=== PATIENT | male | born 1945 | race Caucasian/White ===

== ENCOUNTER 2016-09-02 16:11 | Emergency (ER) | payer MEDICARE, OTHER ==
[2016-09-02] MEDS ORDERED: HYDROcod/ACETAM 5/325 MG TABLET PO STA (16:32)
[2016-09-02] MEDS ORDERED: HYDROcod/ACETAM 5/325 MG TABLET ONE ×2 (16:34→17:26)
[2016-09-02] MEDS ORDERED: HYDROcod/ACET 5/325 Prepack 6 PO STA (17:24)
[2016-09-02] MEDS ORDERED: HYDROcod/ACET 5/325 Prepack 6 PO ONE (17:29)
== END 2016-09-02 18:00 | disposition home or self-care (01) ==
DX: R51 Headache (principal); I10 Essential (primary) hypertension; I45.10 Unspecified right bundle-branch block; E11.9 Type 2 diabetes mellitus without complications; Z79.84 Long term (current) use of oral hypoglycemic drugs; Z79.82 Long term (current) use of aspirin
CPT/HCPCS: 36415; 70450; 80053; 83690; 85025; 93005; 93010; 99283; 99284; A9270

== ENCOUNTER 2016-12-26 11:11 | Inpatient (IN) | payer MEDICARE, OTHER ==
[2016-12-26] MEDS ORDERED: SODIUM CHLORIDE 0.9% 1,000 ML IV ONE ×2 (11:22→13:12)
--- NOTE | 2016-12-26 11:36 | ED Physician Documentation ---
History of Present Illness - Stated complaint Stated Complaint: DEHYDRATION - Chief complaint Chief Complaint: General - Additonal information Additional information: hx from pt sick for about a week had gum pain, couldn't eat, nauseated no vomit but had diarrhea and a cough saw PMD rx zmax not better very weak upper abd pain BP was low and HR was high so sent to ER Review of Systems Constitutional: reports: Myalgias, Fatigue. denies: Fever, Chills Throat: reports: Dental pain / toothache Cardiac: denies: Chest pain / pressure Respiratory: reports: Dyspnea, Cough GI: reports: Abdominal Pain (upper), Nausea, Diarrhea. denies: Vomiting, Bloody / black stool (none seen) : denies: Dysuria Neurologic: reports: Generalized weakness Endocrine: denies: Easy bruising / bleeding Immunocompromised: denies: HIV/AIDS PD PAST MEDICAL HISTORY - Past Medical History Past Medical History: Yes Cardiovascular: Hypertension, High cholesterol Respiratory: Asthma Neuro: Headache/migraine Endocrine/Autoimmune: Type 2 diabetes Psych: Depression, Anxiety - Past Surgical History Past Surgical History: Yes - Present Medications Home Medications: Ambulatory Orders Medication Instructions Recorded Confirmed Cetirizine [ZyrTEC] 10 mg PO DAILY 07/14/14 12/26/16 Gabapentin [Neurontin] 600 mg PO DAILY 07/14/14 12/26/16 Glipizide [Glipizide Xl] 10 mg PO DAILY 07/14/14 12/26/16 Ipratropium/Albuterol [Duoneb] 3 ml INH QID 07/14/14 12/26/16 Losartan [Cozaar] 50 mg PO DAILY 07/14/14 12/26/16 Sertraline HCl [Zoloft] 150 mg PO DAILY 07/14/14 12/26/16 Simvastatin [Zocor] 40 mg PO DAILY 07/14/14 12/26/16 Sitagliptin Phos/Metformin HCl 1 tab PO BIDWM 07/14/14 12/26/16 [Janumet 50-1,000 mg Tablet] Tamsulosin [Flomax] 0.4 mg PO DAILY 07/14/14 12/26/16 Albuterol Sulfate [Proair Hfa 2 puffs INH Q4H PRN 12/26/16 12/26/16 Inhaler] Aspirin [Aspirin EC] 81 mg PO DAILY 12/26/16 12/26/16 Bupropion HCl [Bupropion Xl] 150 mg PO DAILY 12/26/16 12/26/16 Fluticasone/Salmeterol [Advair 1 puffs INH BID 12/26/16 12/26/16 250-50 Diskus] - Allergies Allergies/Adverse Reactions: Allergies Allergy/AdvReac Type Severity Reaction Status Date / Time Penicillins Allergy Unknown Verified 09/02/16 16:18 - Social History Does the pt smoke?: No Smoking Status: Never smoker Does the pt drink ETOH?: No Does the pt have substance abuse?: No - Immunizations Immunizations are current?: Yes - POLST Patient has POLST: No PD ED PE NORMAL - Vitals Vital signs reviewed: Yes - General General: Alert and oriented X 3 - HEENT HEENT: Other (dry, white debris on tongue, tender erythematous gums with white exudate, ni cheek lesions) - Neck Neck: Supple, no meningeal sign - Cardiac Cardiac: RRR - Respiratory Respiratory: No respiratory distress, Clear bilaterally - Abdomen Abdomen: Other (upper abd TTP no rebound guarding or pulsatile mass) - Derm Derm: Other (pale) - Extremities Extremities: No deformity - Neuro Neuro: Alert and oriented X 3 - Psych Psych: Normal mood Results - Vitals Vitals: Vital Signs - 24 hr 12/26/16 12/26/16 11:19 13:11 Temperature 36.4 C L Heart Rate 109 H 94 Respiratory 19 16 Rate Blood Pressure 118/70 95/59 L O2 Saturation 96 97 Oxygen O2 Source Room air - Labs Labs: Laboratory Tests 12/26/16 12/26/16 12/26/16 11:20 11:20 11:20 WBC 7.7 RBC 5.36 Hgb 16.2 Hct 47.1 MCV 88.0 MCH 30.3 MCHC 34.5 RDW 13.9 Plt Count 91 L MPV 9.1 Neut # 5.1 Lymph # 1.6 [place] # 1.0 Eos # 0.0 Baso # 0.1 Absolute Nucleated RBC 0.00 Nucleated RBCs 0.0 Sodium 134 L Potassium 4.3 Chloride 100 L Carbon Dioxide 23 Anion Gap 11.0 BUN 30 H Creatinine 1.4 H Estimated GFR (MDRD) 50 L Glucose 131 H Glycated Hemoglobin Estim Average Glucose Lactic Acid Calcium 8.9 Total Bilirubin 1.0 AST 24 ALT 25 Alkaline Phosphatase 50 Troponin I < 0.04 Total Protein 7.8 Albumin 4.0 Globulin 3.8 Albumin/Globulin Ratio 1.1 Lipase 44 Urine Color Urine Clarity Urine pH Ur Specific [place] Urine Protein Urine Glucose (UA) Urine Ketones Urine Occult Blood Urine Nitrite Urine Bilirubin Urine Urobilinogen Ur Leukocyte Esterase Urine RBC Urine WBC Ur Squamous Epith Cells Urine Bacteria Urine Casts Urine Mucus Ur Microscopic Review Urine Culture Comments 12/26/16 12/26/16 12/26/16 11:20 11:20 13:24 WBC RBC Hgb Hct MCV MCH MCHC RDW Plt Count MPV Neut # Lymph # [place] # Eos # Baso # Absolute Nucleated RBC Nucleated RBCs Sodium Potassium Chloride Carbon Dioxide Anion Gap BUN Creatinine Estimated GFR (MDRD) Glucose Glycated Hemoglobin 8.2 H Estim Average Glucose 189 H Lactic Acid 1.5 Calcium Total Bilirubin AST ALT Alkaline Phosphatase Troponin I Total Protein Albumin Globulin Albumin/Globulin Ratio Lipase Urine Color YELLOW Urine Clarity CLEAR Urine pH 5.5 Ur Specific [place] >=1.030 H Urine Protein 100 H Urine Glucose (UA) NEGATIVE Urine Ketones 15 H Urine Occult Blood NEGATIVE Urine Nitrite NEGATIVE Urine Bilirubin NEGATIVE Urine Urobilinogen 0.2 (NORMAL) Ur Leukocyte Esterase NEGATIVE Urine RBC 0-5 Urine WBC 0-3 Ur Squamous Epith Cells RARE Squamous Urine Bacteria Rare Urine Casts 0-2 Course Granular Urine Mucus Few Strands Ur Microscopic Review INDICATED Urine Culture Comments NOT INDICATED - Rads (name of study) CXR Radiology: See rad report (L basilar infiltrate) CT AP Radiology: See rad report (choleltihiasis (pt advised) , R renal cyst, prom prostate, other chronic findings) PD MEDICAL DECISION MAKING - ED course ED course: LLL pna hypotension - could be sepsis could be dehydration as pt has not been eating or drinking secondary to extensive gum infection will admit pt already failed zmax and is allergic to penicillins and levaquin is black box now so will try cefuroxime Departure - Departure Disposition: 66 [facility] DC/Xfer Clinical Impression: Dehydration, ANUG (acute necrotizing ulcerative gingivitis), Renal insufficiency Pneumonia Qualifiers: Pneumonia type: due to unspecified organism Laterality: left Lung location: lower lobe of lung Qualified Code(s): J18.1 - Lobar pneumonia, unspecified organism Hypotension Qualifiers: Hypotension type: unspecified hypotension type Qualified Code(s): I95.9 - Hypotension, unspecified Condition: Fair Discharge Date/Time: 12/26/16 15:55
[2016-12-26 11:38] LABS: BASOPHILS # (AUTO) 0.1 10^3/uL (0.0-0.1); BASOPHILS % (AUTO) 0.8 %; EOSINOPHILS % (AUTO) 0.3 %; HCT - HEMATOCRIT 47.1 % (42.0-52.0); HGB - HEMOGLOBIN 16.2 g/dL (14.0-18.0); LYMPHOCYTES # (AUTO) 1.6 10^3/uL (1.5-3.5); LYMPHOCYTES % (AUTO) 20.5 %; MEAN CORPUSCULAR HEMOGLOBIN 30.3 pg (27.0-31.0); MEAN CORPUSCULAR HGB CONC 34.5 g/dL (32.0-36.0); MEAN PLATELET VOLUME 9.1 fL (7.4-11.4); MONOCYTES % (AUTO) 12.5 %; NEUTROPHILS # (AUTO) 5.1 10^3/uL (1.5-6.6); NEUTROPHILS % (AUTO) 65.9 %; RED BLOOD COUNT 5.36 10^6/uL (4.70-6.10); RED CELL DISTRIBUTION WIDTH 13.9 % (12.0-15.0); UNCORRECTED WHITE BLOOD COUNT 7.7 x10^3/uL; WHITE BLOOD COUNT 7.7 x10^3/uL (4.8-10.8)
[2016-12-26 11:48] LABS: ALBUMIN/GLOBULIN RATIO 1.1 (1.0-2.2); CALCIUM 8.9 mg/dL (8.5-10.3); CREATININE 1.4 mg/dL (0.6-1.2); POTASSIUM 4.3 mmol/L (3.5-5.0); TOTAL PROTEIN 7.8 g/dL (6.7-8.2)
[2016-12-26] MEDS ORDERED: ONDANSETRON 4 MG/2 ML VIAL IVP STA (12:30)
[2016-12-26] MEDS ORDERED: ACETAMINOPHEN 1,000 MG/100 ML 100 ML IV STA (12:30)
[2016-12-26] MEDS ORDERED: ONDANSETRON 4 MG/2 ML VIAL ONE (12:33)
[2016-12-26] MEDS ORDERED: ACETAMINOPHEN 1,000 MG/100 ML 100 ML IV ONE (12:33)
--- NOTE | 2016-12-26 13:20 | XRAY Preliminary Report ---
Exam: XR Chest 1 View IMPRESSION: Small left basilar atelectasis versus infiltrate. [facility] SITE ID: [id number]
--- NOTE | 2016-12-26 13:22 | XRAY Report ---
EXAM: CHEST RADIOGRAPHY EXAM DATE: 12/26/2016 12:55 PM. CLINICAL HISTORY: Cough. COMPARISON: 12/24/2016. TECHNIQUE: 1 view. FINDINGS: Lungs/Pleura: Patchy density in the medial left base. No consolidation, effusion, or pneumothorax. Mediastinum: Within exam limitations, cardiomediastinal contour is normal. Other: None. IMPRESSION: Small left basilar atelectasis versus infiltrate. [facility] Referring Provider Line: [phone] SITE ID: [id number]
--- NOTE | 2016-12-26 13:27 | CT Preliminary Report ---
Exam: CT Abdomen/Pelvis W/O IMPRESSION: 1. Cholelithiasis. 2. Right renal cyst. 3. Prominent prostate. 4. Other chronic or incidental findings. [facility] SITE ID: [id number]
--- NOTE | 2016-12-26 13:30 | CT Report ---
EXAM: CT ABDOMEN AND PELVIS EXAM DATE: 12/26/2016 12:54 PM. CLINICAL HISTORY: Upper abd pain. COMPARISONS: None. TECHNIQUE: Routine helical CT imaging was performed through the abdomen and pelvis. IV contrast: None . Enteric contrast: No. Reconstructions: Coronal and sagittal. In accordance with CT protocol optimization, one or more of the following dose reduction techniques w ere utilized for this exam: automated exposure control, adjustment of mA and/or KV based on patient s ize, or use of iterative reconstructive technique. FINDINGS: Lung Bases: Small amount of atelectasis or scar in the lingula. Otherwise unremarkable. No effusion. Liver: Normal. No masses. Gallbladder/Bile Ducts: But at least one tiny gallstone. Otherwise unremarkable. No ductal dilation. Spleen: Normal. Small accessory spleen. Pancreas: Normal. Adrenal Glands: Normal. Kidneys: Right upper pole cyst. Tiny parenchymal calcification on the right. Mild bilateral perinephr ic fat stranding, most likely chronic. No collecting system stone or hydronephrosis. Peritoneal Cavity/Bowel: Normal. No free fluid, free air or adenopathy. No masses or acute inflammato ry process. The appendix is well visualized and normal. Pelvic Organs: Unremarkable urinary bladder. Large prostate measuring about 6.2 x 4.7 x 6.3 cm, with tiny calcifications. Vasculature: No aneurysms or other significant abnormality. Bones: No significant abnormality. Other: Small left inguinal hernia with fat involvement only. IMPRESSION: 1. Cholelithiasis. 2. Right renal cyst. 3. Prominent prostate. 4. Other chronic or incidental findings. [facility] Referring Provider Line: [phone] SITE ID: [id number]
[2016-12-26] MEDS ORDERED: CEFUROXIME IV STA (13:44)
[2016-12-26] MEDS ORDERED: SODIUM CHLORIDE 0.9% IV STA (13:44)
[2016-12-26] MEDS ORDERED: CHLORHEXIDINE GLUCONATE 15 ML UDC PO STA (13:45)
[2016-12-26 13:47] LABS: PH,URINE 5.5 PH (5.0-7.5)
[2016-12-26 13:53] LABS: BILIRUBIN,URINE NEGATIVE (NEGATIVE); UA w/ MICROSCOPIC CHARGE YES; UR CULTURE IF IND NOT INDICATED; WBC,URINE 0-3 /HPF (0-3)
[2016-12-26] MEDS ORDERED: SODIUM CHLORIDE FLUSH 0.9% 10 ML SYRINGE IVP PRN (16:14)
[2016-12-26] MEDS ORDERED: ONDANSETRON ODT 4 MG TABLET TL PRN (16:14)
[2016-12-26 18:02] LABS: HEMOGLOBIN A1C 1.19 g/dL
[2016-12-26] MEDS: NYSTATIN 500000 UNITS/5 ML UDC PO SCH ×2 (18:07→22:37)
[2016-12-26] MEDS: SODIUM CHLORIDE FLUSH 0.9% 10 ML SYRINGE IVP SCH (18:07)
[2016-12-26] MEDS: SODIUM CHLORIDE 0.9% 1,000 ML IV SCH (18:07)
[2016-12-26] MEDS: PANTOPRAZOLE 40 MG VIAL IVP SCH (18:07)
--- NOTE | 2016-12-26 18:51 | HISTORY & PHYSICAL EXAMINATION ---
Chief Complaint - Chief Complaint Chief Complaint: weakness and fatigue with cough History of Present Illness - Admitted From Admitted From:: ER - History Obtained From Records Reviewed: yes History obtained from: patient - History of Present Illness HPI Comment/Other: Patient is 71 year old gentleman who presented to the ER with complaints of weakness and fatigue with difficulty in swallowing and mouth pain and bleeding gums. He states he has had similar symptoms in the past but no gum bleeding. He also has history of diabetes and he states is controlled. He does not know what his A1C has been. He denies chest pain or shortness of breath. He has not been drinking much with his mouth sore and feels like he is dehydrated. while in the ER he was thought to have a pneumonia and patient was to be admitted for possible pneumonia. He denies chest pain or shortness of breath. He has had bad breath for several weeks according to the patient. He states he is weak and tired and not feeling like eating or doing much. He is not sure whether he has a fever or not. He has taken nothing for his pain or symptoms. While in the ER he received IVF and an antibiotic. He is being admitted for further evaluation for his difficulty in eating and swallowing and for IV hydration. 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 - Substance History Use: Uses substance without health or social issues: NONE Abuse: Recurrent use of substance despite neg consequences: NONE Dependence: Experiences withdrawal or developed tolerances: NONE - POLST Patient has POLST: No POLST Status: Full Code Meds/Allgy - Home Medications Home Medications: Ambulatory Orders Medication Instructions Recorded Confirmed Cetirizine [ZyrTEC] 10 mg PO DAILY 07/14/14 12/26/16 Gabapentin [Neurontin] 600 mg PO DAILY 07/14/14 12/26/16 Glipizide [Glipizide Xl] 10 mg PO DAILY 07/14/14 12/26/16 Ipratropium/Albuterol [Duoneb] 3 ml INH QID 07/14/14 12/26/16 Losartan [Cozaar] 50 mg PO DAILY 07/14/14 12/26/16 Sertraline HCl [Zoloft] 150 mg PO DAILY 07/14/14 12/26/16 Simvastatin [Zocor] 40 mg PO DAILY 07/14/14 12/26/16 Sitagliptin Phos/Metformin HCl 1 tab PO BIDWM 07/14/14 12/26/16 [Janumet 50-1,000 mg Tablet] Tamsulosin [Flomax] 0.4 mg PO DAILY 07/14/14 12/26/16 Albuterol Sulfate [Proair Hfa 2 puffs INH Q4H PRN 12/26/16 12/26/16 Inhaler] Aspirin [Aspirin EC] 81 mg PO DAILY 12/26/16 12/26/16 Bupropion HCl [Bupropion Xl] 150 mg PO DAILY 12/26/16 12/26/16 Fluticasone/Salmeterol [Advair 1 puffs INH BID 12/26/16 12/26/16 250-50 Diskus] Chlorhexidine Gluconate [Peridex] 15 ml MM BID #1 mouthwash 12/27/16 Metronidazole [Flagyl] 500 mg PO Q6HR #40 tablet 12/27/16 - Allergies Allergies/Adverse Reactions: Allergies Allergy/AdvReac Type Severity Reaction Status Date / Time Penicillins Allergy Unknown Verified 09/02/16 16:18 Exam - Vital Signs Reviewed Vital Signs: Yes Vital Signs: Vital Signs x48h Temp Pulse Pulse Resp BP BP Pulse Ox 12/26/16 16:16 37.1 C 93 16 111/67 96 12/26/16 15:54 91 18 104/74 96 12/26/16 14:28 37.2 C 99 18 102/61 95 - Physical Exam General Appearance: positive: No acute distress, Alert Eyes Bilateral: positive: Normal inspection, PERRL, EOMI ENT: positive: Pharyngeal erythema, Oral lesions, Dry mucous membranes, Other ( yeast on tongue. halitosis, bleeding gums) Neck: positive: Thyroid nml, No JVD, Trachea midline, Thyromegaly Respiratory: positive: Chest non-tender, No respiratory distress, Breath sounds nml Cardiovascular: positive: Regular rate & rhythm, No murmur, No gallop Peripheral Pulses: positive: 2+ Abdomen: positive: Non-tender, No organomegaly, Nml bowel sounds, No distention. negative: Tenderness, Guarding, Rebound Skin: positive: Color nml, No rash, Warm, Dry Extremities: positive: Non-tender, Full ROM, Nml appearance. negative: Calf tenderness Neurologic/Psychiatric: positive: Oriented x3, CN's nml (2-12), Motor nml, Sensation nml, Mood/affect nml, Weakness. negative: Facial droop, Slurred/ abnml speech Conclusion/Plan - Problem List (1) ANUG (acute necrotizing ulcerative gingivitis) Conclusion/Plan: acute. will give magic mouthwash, peridex, and nystatin for the yeast. He received Peridex in the ER. res counselor on proper mouth care. will need dentist at outpatient. continue with flagyl IV for peridontal disease (2) [id number] diabetes mellitus with renal complications Conclusion/Plan: acute on chronic. will continue on diabetic diet with sliding scale insulin and Qualifiers: Diabetes mellitus complication detail: with other kidney complication Diabetes mellitus custodial insulin use: without medical terminologist use Qualified Code( s): E11.29 - Type 2 diabetes mellitus with other diabetic kidney complication (3) Acute kidney insufficiency Conclusion/Plan: acute with mild dehydration. will given IVF for hydration and monitor output and kidney function in the morning with lab draws (4) Mild dehydration Conclusion/Plan: acute. IVF for hydration and will monitor output and repeat CMP in the morning - Lab Results Lab results reviewed: Yes Fish Bones: 12/27/16 05:40 12/27/16 05:40 Other Lab Results: Abnormal Lab Results 12/26/16 12/26/16 12/26/16 11:20 11:20 11:20 Plt Count 91 10^3/uL L 10^3/uL (130-450) Sodium 134 mmol/L L mmol/L (135-145) Chloride 100 mmol/L L mmol/L (101-111) BUN 30 mg/dL H mg/dL (6-20) Creatinine 1.4 mg/dL H mg/dL (0.6-1.2) Estimated GFR (MDRD) 50 L (>89) Glucose 131 mg/dL H mg/dL (70-100) Glycated Hemoglobin 8.2 % H % (4.6-6.2) Estim Average Glucose 189 H (70-100) Ur Specific [place] Urine Protein Urine Ketones 12/26/16 13:24 Plt Count Sodium Chloride BUN Creatinine Estimated GFR (MDRD) Glucose Glycated Hemoglobin Estim Average Glucose Ur Specific [place] >=1.030 H (1.002-1.030) Urine Protein 100 mg/dL H mg/dL (NEGATIVE) Urine Ketones 15 mg/dL H mg/dL (NEGATIVE) - EKG Results EKG Interpreted Independently: Yes EKG Comparison: Unchanged from prior EKG Issues/Core Measures - Anticipated LOS Anticipated Stay Length: 2 or more midnights - DVT/VTE - Prophylaxis VTE/DVT Device ordered at admit?: Yes Not Ordered - Low Risk: Low Risk VTE/DVT Prophylaxis med ordered at admit?: Yes - Stroke - Rehab Assessment Rehab services assessment to be ordered?: No - AMI - Statin at Admit Aspirin Prescribed on Admit: No
[2016-12-26] MEDS: ACETAMINOPHEN 325 MG TABLET PO PRN (20:16)
[2016-12-26] MEDS: INSULIN ASPART 300 UNIT/3 ML PEN SUBQ SCH (22:33)
[2016-12-27] MEDS: SODIUM CHLORIDE 0.9% 1,000 ML IV SCH ×2 (04:01→13:59)
[2016-12-27 06:26] LABS: BASOPHILS % (AUTO) 0.5 %; EOSINOPHILS # (AUTO) 0.1 10^3/uL (0.0-0.7); HCT - HEMATOCRIT 42.7 % (42.0-52.0); HGB - HEMOGLOBIN 14.6 g/dL (14.0-18.0); LYMPHOCYTES # (AUTO) 1.4 10^3/uL (1.5-3.5); LYMPHOCYTES % (AUTO) 25.1 %; MEAN CORPUSCULAR HEMOGLOBIN 30.5 pg (27.0-31.0); MEAN CORPUSCULAR HGB CONC 34.1 g/dL (32.0-36.0); MEAN CORPUSCULAR VOLUME 89.4 fL (80.0-94.0); MEAN PLATELET VOLUME 9.3 fL (7.4-11.4); MONOCYTES # (AUTO) 0.6 10^3/uL (0.0-1.0); MONOCYTES % (AUTO) 9.9 %; NEUTROPHILS # (AUTO) 3.6 10^3/uL (1.5-6.6); NEUTROPHILS % (AUTO) 63.5 %; NUCLEATED RED BLOOD CELLS AUTO 0.1 /100WBC; RED BLOOD COUNT 4.78 10^6/uL (4.70-6.10); UNCORRECTED WHITE BLOOD COUNT 5.7 x10^3/uL; WHITE BLOOD COUNT 5.7 x10^3/uL (4.8-10.8)
[2016-12-27 06:31] LABS: BILIRUBIN,TOTAL 0.6 mg/dL (0.2-1.0); CALCIUM 8.2 mg/dL (8.5-10.3); CREATININE 1.2 mg/dL (0.6-1.2); POTASSIUM 4.2 mmol/L (3.5-5.0); TOTAL PROTEIN 6.7 g/dL (6.7-8.2)
[2016-12-27] MEDS: SODIUM CHLORIDE FLUSH 0.9% 10 ML SYRINGE IVP SCH ×3 (06:40→16:12)
[2016-12-27] MEDS: PANTOPRAZOLE 40 MG VIAL IVP SCH ×2 (06:40→16:12)
[2016-12-27] MEDS: INSULIN ASPART 300 UNIT/3 ML PEN SUBQ SCH ×3 (08:18→17:35)
[2016-12-27] MEDS ORDERED: POLYETHYLENE GLYCOL 3350 17 GM PACKET PO SCH (09:00)
[2016-12-27] MEDS ORDERED: ENOXAPARIN 40 MG/0.4 ML SYRINGE SUBQ SCH (09:00)
[2016-12-27 09:03] VITALS: BP 129/87
--- NOTE | 2016-12-27 09:03 | Discharge Plan ---
Discharge Plan Disposition: Home, Self Care Condition: Fair Prescriptions: Metronidazole [Flagyl] 500 mg PO Q6HR #40 tablet Chlorhexidine Gluconate [Peridex] 15 ml MM BID #1 mouthwash Diet: Diabetic Activity Restrictions: Activity as Tolerated Shower Restrictions: No Driving Restrictions: No Assistance Devices: Walker, Cane Weight Bearing: Full Weight Instruction Topics: Periodontal Disease Stages, ED Trench Mouth Additional Instructions or Follow Up instructions: Please continue to take all your home medications as prescribed. You have been given a prescription for Peridex and Flagyl for the disease. take these all as prescribed Continue to monitor your blood glucose and eat a low carbohydrate diabetic diet. Avoid refined sugar and corn syrup. Drink alot of water daily. Avoid caffeine and soda Get plenty of rest the first week your are home Get daily exercise. Walking for 30 minutes daily is a great way to feel better and improve your mood Followup with your primary care provider within 1 week of discharge. SEE -[facility] [place] THEIR PHONE NUMBER IS [phone]. THE [place]DRESS IS: [id number] [facility] [address] [address] PLEASE SEE THEM TOMORROW A WALKIN. THE OFFICE WAS CALLED AND CARRY THESE INSTRUCTIONS WITH YOU Follow-Up Care: Dietitian No Smoking: If you smoke, Please STOP! Call for help. Follow-up with: Logan Palma MD [Primary Care Provider] -
--- NOTE | 2016-12-27 09:03 | DISCHARGE SUMMARY ---
"Discharge Summary Admit Date: 12/26/16 Discharge Date: 12/27/16 Discharging Provider: Haylee Montesinos APRN Code Status: Attempt Resuscitation Condition at Discharge: Fair Discharge Disposition: 01 Home, Self Care Discharge Facility Name: home - DIAGNOSES Admission Diagnoses: 1. Pneumonia with unspecifed organism 2. ANUG 3. acute weakness 4. Hypoosmolaity and hyponatremia Discharge Diagnoses with Status of Each Condition: 1. Acute necrotic ulcerative gingivitis 2. Acute weakness with fatigue, generalized 3. Acute hyponatremia with other electrolyte imbalances 4. Hypo-osmolality - HPI History of Present Illness: Patient is 71 year old gentleman who presented to the ER with complaints of weakness and fatigue with difficulty in swallowing and mouth pain and bleeding gums. He states he has had similar symptoms in the past but no gum bleeding. He also has history of diabetes and he states is controlled. He does not know what his A1C has been. He denies chest pain or shortness of breath. He has not been drinking much with his mouth sore and feels like he is dehydrated. while in the ER he was thought to have a pneumonia and patient was to be admitted for possible pneumonia. He denies chest pain or shortness of breath. He has had bad breath for several weeks according to the patient. He states he is weak and tired and not feeling like eating or doing much. He is not sure whether he has a fever or not. He has taken nothing for his pain or symptoms. While in the ER he received IVF and an antibiotic. He is being admitted for further evaluation for his difficulty in eating and swallowing and for IV hydration. - CONSULTS | PROCEDURES Consultations: none Procedures: none - HOSPITAL COURSE Hospital Course: Patient is 71 year old gentleman who presented to the ER with complaints of weakness and fatigue with difficulty in swallowing and mouth pain and bleeding gums. He states he has had similar symptoms in the past but no gum bleeding. He also has history of diabetes and he states is controlled. Patient was admitted for further evaluation. He was on a diabetic diet and A1C checked. Sliding scale insulin started. His dehydration was treated with IVF normal saline since he was not drinking much with his mouth sore and feels like he is dehydrated. while in the ER he was thought to have a pneumonia, was started on antibiotics but the chest xray did not confirm this. He has had bad breath for several weeks according to the patient. He was treated with peridex and nystatin mouth wash. He was refered to outpatient clinic [facility] in [place] for further evaluation. Patient was given RT treatment with supplemental oxygen and duoneb treatments if needed. He got tylenol for fever. Speech therapy evaluated the patients swallowing and was normal and tolerating soft mechanical diet. - ALLERGIES Allergies/Adverse Reactions: Allergies Allergy/AdvReac Type Severity Reaction Status Date / Time Penicillins Allergy Unknown Verified 09/02/16 16:18 - MEDICATIONS Home Medications: Ambulatory Orders Medication Instructions Recorded Confirmed Cetirizine [ZyrTEC] 10 mg PO DAILY 07/14/14 12/26/16 Gabapentin [Neurontin] 600 mg PO DAILY 07/14/14 12/26/16 Glipizide [Glipizide Xl] 10 mg PO DAILY 07/14/14 12/26/16 Ipratropium/Albuterol [Duoneb] 3 ml INH QID 07/14/14 12/26/16 Losartan [Cozaar] 50 mg PO DAILY 07/14/14 12/26/16 Sertraline HCl [Zoloft] 150 mg PO DAILY 07/14/14 12/26/16 Simvastatin [Zocor] 40 mg PO DAILY 07/14/14 12/26/16 Sitagliptin Phos/Metformin HCl 1 tab PO BIDWM 07/14/14 12/26/16 [Janumet 50-1,000 mg Tablet] Tamsulosin [Flomax] 0.4 mg PO DAILY 07/14/14 12/26/16 Albuterol Sulfate [Proair Hfa 2 puffs INH Q4H PRN 12/26/16 12/26/16 Inhaler] Aspirin [Aspirin EC] 81 mg PO DAILY 12/26/16 12/26/16 Bupropion HCl [Bupropion Xl] 150 mg PO DAILY 12/26/16 12/26/16 Fluticasone/Salmeterol [Advair 1 puffs INH BID 12/26/16 12/26/16 250-50 Diskus] Chlorhexidine Gluconate [Peridex] 15 ml MM BID #1 mouthwash 12/27/16 Metronidazole [Flagyl] 500 mg PO Q6HR #40 tablet 12/27/16 - PHYSICAL EXAM AT DISCHARGE General Appearance: positive: No acute distress, Alert Eyes Bilateral: positive: Normal inspection, PERRL, EOMI ENT: positive: Pharyngeal erythema, Oral lesions, Dry mucous membranes, Other ( halitosis and bleeding gums with edema) Neck: positive: Nml inspection, Thyroid nml, No JVD, Trachea midline Respiratory: positive: Chest non-tender, No respiratory distress, Breath sounds nml Cardiovascular: positive: Regular rate & rhythm, No murmur, No gallop Abdomen: positive: Non-tender, No organomegaly, Nml bowel sounds, No distention Skin: positive: Color nml, No rash, Warm, Dry Neurologic/Psychiatric: positive: Oriented x3, CN's nml (2-12), Motor nml, Sensation nml, Mood/affect nml, Weakness - LABS Result Diagrams: 12/27/16 05:40 12/27/16 05:40 Other Lab Results: Laboratory Tests 12/26/16 12/26/16 12/26/16 11:20 11:20 11:20 WBC 7.7 RBC 5.36 Hgb 16.2 Hct 47.1 MCV 88.0 MCH 30.3 MCHC 34.5 RDW 13.9 Plt Count 91 L MPV 9.1 Neut # 5.1 Lymph # 1.6 Foster # 1.0 Eos # 0.0 Baso # 0.1 Absolute Nucleated RBC 0.00 Nucleated RBCs 0.0 Sodium 134 L Potassium 4.3 Chloride 100 L Carbon Dioxide 23 Anion Gap 11.0 BUN 30 H Creatinine 1.4 H Estimated GFR (MDRD) 50 L Glucose 131 H POC Whole Bld Glucose Glycated Hemoglobin Estim Average Glucose Lactic Acid Calcium 8.9 Magnesium Total Bilirubin 1.0 AST 24 ALT 25 Alkaline Phosphatase 50 Troponin I < 0.04 Total Protein 7.8 Albumin 4.0 Globulin 3.8 Albumin/Globulin Ratio 1.1 Lipase 44 Urine Color Urine Clarity Urine pH Ur Specific [place] Urine Protein Urine Glucose (UA) Urine Ketones Urine Occult Blood Urine Nitrite Urine Bilirubin Urine Urobilinogen Ur Leukocyte Esterase Urine RBC Urine WBC Ur Squamous Epith Cells Urine Bacteria Urine Casts Urine Mucus Ur Microscopic Review Urine Culture Comments 12/26/16 12/26/16 12/26/16 11:20 11:20 13:24 WBC RBC Hgb Hct MCV MCH MCHC RDW Plt Count MPV Neut # Lymph # Foster # Eos # Baso # Absolute Nucleated RBC Nucleated RBCs Sodium Potassium Chloride Carbon Dioxide Anion Gap BUN Creatinine Estimated GFR (MDRD) Glucose POC Whole Bld Glucose Glycated Hemoglobin 8.2 H Estim Average Glucose 189 H Lactic Acid 1.5 Calcium Magnesium Total Bilirubin AST ALT Alkaline Phosphatase Troponin I Total Protein Albumin Globulin Albumin/Globulin Ratio Lipase Urine Color YELLOW Urine Clarity CLEAR Urine pH 5.5 Ur Specific [place] >=1.030 H Urine Protein 100 H Urine Glucose (UA) NEGATIVE Urine Ketones 15 H Urine Occult Blood NEGATIVE Urine Nitrite NEGATIVE Urine Bilirubin NEGATIVE Urine Urobilinogen 0.2 (NORMAL) Ur Leukocyte Esterase NEGATIVE Urine RBC 0-5 Urine WBC 0-3 Ur Squamous Epith Cells RARE Squamous Urine Bacteria Rare Urine Casts 0-2 Course Granular Urine Mucus Few Strands Ur Microscopic Review INDICATED Urine Culture Comments NOT INDICATED 12/26/16 12/26/16 12/27/16 16:41 22:09 05:40 WBC 5.7 RBC 4.78 Hgb 14.6 Hct 42.7 MCV 89.4 MCH 30.5 MCHC 34.1 RDW 14.0 Plt Count 87 L MPV 9.3 Neut # 3.6 Lymph # 1.4 L Foster # 0.6 Eos # 0.1 Baso # 0.0 Absolute Nucleated RBC 0.00 Nucleated RBCs 0.1 Sodium Potassium Chloride Carbon Dioxide Anion Gap BUN Creatinine Estimated GFR (MDRD) Glucose POC Whole Bld Glucose 105 H Glycated Hemoglobin Estim Average Glucose Lactic Acid Calcium Magnesium 1.9 Total Bilirubin AST ALT Alkaline Phosphatase Troponin I Total Protein Albumin Globulin Albumin/Globulin Ratio Lipase Urine Color Urine Clarity Urine pH Ur Specific [place] Urine Protein Urine Glucose (UA) Urine Ketones Urine Occult Blood Urine Nitrite Urine Bilirubin Urine Urobilinogen Ur Leukocyte Esterase Urine RBC Urine WBC Ur Squamous Epith Cells Urine Bacteria Urine Casts Urine Mucus Ur Microscopic Review Urine Culture Comments 12/27/16 12/27/16 12/27/16 05:40 07:58 11:06 WBC RBC Hgb Hct MCV MCH MCHC RDW Plt Count MPV Neut # Lymph # Foster # Eos # Baso # Absolute Nucleated RBC Nucleated RBCs Sodium 137 Potassium 4.2 Chloride 105 Carbon Dioxide 25 Anion Gap 7.0 BUN 21 H Creatinine 1.2 Estimated GFR (MDRD) 60 L Glucose 85 POC Whole Bld Glucose 79 126 H Glycated Hemoglobin Estim Average Glucose Lactic Acid Calcium 8.2 L Magnesium Total Bilirubin 0.6 AST 20 ALT 19 Alkaline Phosphatase 44 Troponin I Total Protein 6.7 Albumin 3.3 Globulin 3.4 Albumin/Globulin Ratio 1.0 Lipase Urine Color Urine Clarity Urine pH Ur Specific [place] Urine Protein Urine Glucose (UA) Urine Ketones Urine Occult Blood Urine Nitrite Urine Bilirubin Urine Urobilinogen Ur Leukocyte Esterase Urine RBC Urine WBC Ur Squamous Epith Cells Urine Bacteria Urine Casts Urine Mucus Ur Microscopic Review Urine Culture Comments 12/27/16 17:33 WBC RBC Hgb Hct MCV MCH MCHC RDW Plt Count MPV Neut # Lymph # Foster # Eos # Baso # Absolute Nucleated RBC Nucleated RBCs Sodium Potassium Chloride Carbon Dioxide Anion Gap BUN Creatinine Estimated GFR (MDRD) Glucose POC Whole Bld Glucose 111 H Glycated Hemoglobin Estim Average Glucose Lactic Acid Calcium Magnesium Total Bilirubin AST ALT Alkaline Phosphatase Troponin I Total Protein Albumin Globulin Albumin/Globulin Ratio Lipase Urine Color Urine Clarity Urine pH Ur Specific [place] Urine Protein Urine Glucose (UA) Urine Ketones Urine Occult Blood Urine Nitrite Urine Bilirubin Urine Urobilinogen Ur Leukocyte Esterase Urine RBC Urine WBC Ur Squamous Epith Cells Urine Bacteria Urine Casts Urine Mucus Ur Microscopic Review Urine Culture Comments - DIAGNOSTIC IMAGING Diagnostic Imaging Results: Final report reviewed (Followup with [facility] as walkin the next day after discharge) - FOLLOW UP Follow Up: Will have pt follow up with PCP for further care or return if pt worsens. Pt comfortable with plan. Pt counseled regarding expected course and signs and symptoms for which I believe an urgent re-evaluation would be necessary. Pt with good understanding and agreement to plan. Time spent with discharge was 40 minutes for planning and education"
[2016-12-27] MEDS: ACETAMINOPHEN 325 MG TABLET PO PRN (09:12)
[2016-12-27] MEDS: NYSTATIN 500000 UNITS/5 ML UDC PO SCH ×3 (09:13→19:10)
[2016-12-27] MEDS ORDERED: CHLORHEXIDINE GLUCONATE 15 ML UDC PO SCH (15:00)
[2016-12-27] MEDS ORDERED: metroNIDAZOLE 500 MG/100 ML 100 ML IV SCH (15:00)
[2016-12-27] MEDS ORDERED: ASCORBIC ACID CHEW 500 MG TABLET PO SCH (15:00)
[2016-12-27] MEDS ORDERED: NYSTATIN POWDER 15 GM TOP SCH (19:00)
== END 2016-12-27 19:10 | disposition home or self-care (01) | DRG 153 ==
LOC: ED 11:11 → MS2 14:21
PROVIDERS: ADMIT Nurse Practitioner; ATTEND Nurse Practitioner
DX: A69.1 Other Vincent's infections (principal); E87.1 Hypo-osmolality and hyponatremia; E11.29 Type 2 diabetes mellitus with other diabetic kidney complication; J18.1 Lobar pneumonia, unspecified organism; I95.9 Hypotension, unspecified; N28.9 Disorder of kidney and ureter, unspecified; E11.9 Type 2 diabetes mellitus without complications; E86.0 Dehydration; K05.6 Periodontal disease, unspecified; Z88.0 Allergy status to penicillin; I10 Essential (primary) hypertension; E78.00 Pure hypercholesterolemia, unspecified; I25.10 Atherosclerotic heart disease of native coronary artery without angina pectoris; J45.909 Unspecified asthma, uncomplicated; K21.9 Gastro-esophageal reflux disease without esophagitis; F43.10 Post-traumatic stress disorder, unspecified; F32.9 Major depressive disorder, single episode, unspecified; F41.9 Anxiety disorder, unspecified; N40.1 Benign prostatic hyperplasia with lower urinary tract symptoms; R33.8 Other retention of urine; Z79.84 Long term (current) use of oral hypoglycemic drugs
CPT/HCPCS: 36415; 51701; 71010; 74176; 80053; 81001; 81003; 83036; 83605; 83690; 83735; 84484; 85025; 87040; 87086; 96361; 96374; 96375; 99284

== ENCOUNTER 2017-10-25 11:32 | Outpatient (CLI) | payer MEDICARE, OTHER ==
[2017-10-25 19:13] LABS: ALBUMIN 4.2 g/dL (3.2-5.5); ALBUMIN/GLOBULIN RATIO 1.4 (1.0-2.2); BILIRUBIN,TOTAL 0.6 mg/dL (0.2-1.0); CALCIUM 8.9 mg/dL (8.5-10.3); TOTAL PROTEIN 7.3 g/dL (6.7-8.2)
[2017-10-25 19:32] LABS: HB2 TOTAL 18.1 g/dL; HEMOGLOBIN A1C 0.98 g/dL; HEMOGLOBIN A1C % 7.1 % (4.6-6.2)
== END 2017-10-25 11:33 | disposition home or self-care (01) ==
LOC: LAB.WCP 11:32
PROVIDERS: ATTEND Family Medicine
DX: E11.9 Type 2 diabetes mellitus without complications (principal); I10 Essential (primary) hypertension
CPT/HCPCS: 36415; 80053; 83036

== ENCOUNTER 2017-11-09 18:19 | Emergency (ER) | payer MEDICARE, OTHER ==
[2017-11-09] MEDS ORDERED: LIDOCAINE 2% 10 ML MDV SUBQ STA (19:27)
--- NOTE | 2017-11-09 20:12 | ED Physician Documentation ---
PD HPI UPPER EXT INJURY - Stated complaint Stated Complaint: FINGER INJURY - Chief complaint Chief Complaint: Laceration - History obtained from History obtained from: Patient - History of Present Illness Location: Left, Finger Type of injury: Laceration Where injury occurred: Home Timing - onset: Today Timing - details: Abrupt onset Improved by: Immobilization Similar symptoms before: Has not had sx before Recently seen: Not recently seen - Additonal information Additional information: Patient is a 72 year old male presenting to the emergency department for a finger laceration. Patient states that he was cutting cardboard and the scissors broke and he cut his finger. Patient denies any other trauma and states that he is up to date on his tetanus. Review of Systems Ten Systems: 10 systems reviewed and negative Skin: reports: Laceration (s) PD PAST MEDICAL HISTORY - Past Medical History Cardiovascular: Hypertension, High cholesterol, Coronary artery disease Respiratory: Asthma Endocrine/Autoimmune: Type 2 diabetes GI: GERD : Retention, Renal insuffiency Psych: Depression, Anxiety, Post traumatic stress disorder Musculoskeletal: Fatigue Derm: None - Past Surgical History Past Surgical History: Yes /[employer]: Other (BPH) - Present Medications Home Medications: Ambulatory Orders Medication Instructions Recorded Confirmed Cetirizine [ZyrTEC] 10 mg PO DAILY 07/14/14 12/26/16 Gabapentin [Neurontin] 600 mg PO DAILY 07/14/14 12/26/16 Glipizide [Glipizide Xl] 10 mg PO DAILY 07/14/14 12/26/16 Ipratropium/Albuterol [Duoneb] 3 ml INH QID 07/14/14 12/26/16 Losartan [Cozaar] 50 mg PO DAILY 07/14/14 12/26/16 Sertraline HCl [Zoloft] 150 mg PO DAILY 07/14/14 12/26/16 Simvastatin [Zocor] 40 mg PO DAILY 07/14/14 12/26/16 Sitagliptin Phos/Metformin HCl 1 tab PO BIDWM 07/14/14 12/26/16 [Janumet 50-1,000 mg Tablet] Tamsulosin [Flomax] 0.4 mg PO DAILY 07/14/14 12/26/16 Albuterol Sulfate [Proair Hfa 2 puffs INH Q4H PRN 12/26/16 12/26/16 Inhaler] Aspirin [Aspirin EC] 81 mg PO DAILY 12/26/16 12/26/16 Bupropion HCl [Bupropion Xl] 150 mg PO DAILY 12/26/16 12/26/16 Fluticasone/Salmeterol [Advair 1 puffs INH BID 12/26/16 12/26/16 250-50 Diskus] Chlorhexidine Gluconate [Peridex] 15 ml MM BID #1 mouthwash 12/27/16 Metronidazole [Flagyl] 500 mg PO Q6HR #40 tablet 12/27/16 - Allergies Allergies/Adverse Reactions: Allergies Allergy/AdvReac Type Severity Reaction Status Date / Time Penicillins Allergy Unknown Verified 11/09/17 18:49 - Social History Does the pt smoke?: No Smoking Status: Never smoker Does the pt drink ETOH?: No Does the pt have substance abuse?: No - Immunizations Immunizations are current?: Yes - POLST Patient has POLST: No POLST Status: Full Code PD ED PE NORMAL - Vitals Vital signs reviewed: Yes - General General: Alert and oriented X 3 - HEENT HEENT: Atraumatic - Cardiac Cardiac: RRR - Respiratory Respiratory: No respiratory distress - Neuro Neuro: Alert and oriented X 3 Eye Opening: Spontaneous PD ED PE EXPANDED - Derm Derm: Laceration(s) - Extremities Extremities: Left finger(s) (1.5cm laceration of left distal, lateral 2nd digit) Results - Vitals Vitals: Vital Signs - 24 hr 11/09/17 11/09/17 18:45 20:15 Temperature 36.6 C 37 C Heart Rate 90 88 Respiratory 18 18 Rate Blood Pressure 145/93 H 140/90 H O2 Saturation 97 100 Oxygen O2 Source Room air Procedures - Laceration (location) left 2nd digit Length in cm: 1.5 Wound type: Linear Neurovascular status: Sensory intact, Motor intact, Vascular intact Anesthesia: Lidocaine 2% Wound Preparation: Chlorhexadine Skin layer closure: Dermabond, Steri strips Other: Patient tolerated well, No complications, Dressing applied, Tetanus UTD Complexity: Simple - Regional nerve block Nerve block site: Digital - note digit(s) (hand, 2nd digit) Right / left: Left Nerve block anesthesia: Lidocaine 2% Nerve block aftercare: Excellent anesthesia PD MEDICAL DECISION MAKING - ED course Complexity details: reviewed old records, re-evaluated patient, considered differential, d/w patient ED course: patient was seen and examined at bedside. Digital block was performed. patient 's laceration was cleaned and repaired as described above. Patient required no further work up and was stable for discharge with outpatient follow up. - Sepsis Event Vital Signs: Vital Signs - 24 hr 11/09/17 11/09/17 18:45 20:15 Temperature 36.6 C 37 C Heart Rate 90 88 Respiratory 18 18 Rate Blood Pressure 145/93 H 140/90 H O2 Saturation 97 100 Oxygen O2 Source Room air Departure - Departure Disposition: 01 Home, Self Care Clinical Impression: Laceration Condition: Good Instructions: ED Laceration Ext Skin Glue Follow-Up: Logan Palma MD [Primary Care Provider] - As Needed Comments: Keep your wound clean and dry. the steri strips should stay on for the next 4 days or so. If one comes off before that you should replace it. You can take motrin or tylenol as needed for pain. Discharge Date/Time: 11/09/17 20:21
[2017-11-09 20:20] VITALS: BP 140/90
== END 2017-11-09 20:21 | disposition home or self-care (01) ==
LOC: ED 18:19
DX: S61.211A Laceration without foreign body of left index finger without damage to nail, initial encounter (principal); W26.8XXA Contact with other sharp object(s), not elsewhere classified, initial encounter; Y93.89 Activity, other specified; Y92.009 Unspecified place in unspecified non-institutional (private) residence as the place of occurrence of the external cause; I10 Essential (primary) hypertension; E11.9 Type 2 diabetes mellitus without complications; Z79.84 Long term (current) use of oral hypoglycemic drugs; Z79.82 Long term (current) use of aspirin
CPT/HCPCS: 12001; 99282; 99283

== ENCOUNTER 2019-10-08 11:49 | Outpatient (CLI) | payer MEDICARE, OTHER ==
[2019-10-08 13:25] LABS: BASOPHILS % (AUTO) 0.5 %; EOSINOPHILS # (AUTO) 0.2 10^3/uL (0.0-0.7); EOSINOPHILS % (AUTO) 2.6 %; HGB - HEMOGLOBIN 15.8 g/dL (14.0-18.0); LYMPHOCYTES # (AUTO) 1.7 10^3/uL (1.5-3.5); MEAN CORPUSCULAR HEMOGLOBIN 30.3 pg (27.0-31.0); MEAN CORPUSCULAR HGB CONC 33.8 g/dL (32.0-36.0); MEAN CORPUSCULAR VOLUME 89.8 fL (80.0-94.0); MEAN PLATELET VOLUME 11.3 fL (7.4-11.4); MONOCYTES # (AUTO) 0.6 10^3/uL (0.0-1.0); MONOCYTES % (AUTO) 7.3 %; NEUTROPHILS # (AUTO) 5.3 10^3/uL (1.5-6.6); NEUTROPHILS % (AUTO) 67.1 %; PLT - PLATELET COUNT 142 10^3/uL (130-450); RED BLOOD COUNT 5.21 10^6/uL (4.70-6.10); RED CELL DISTRIBUTION WIDTH 13.2 % (12.0-15.0); WHITE BLOOD COUNT 7.8 x10^3/uL (4.8-10.8)
[2019-10-08 13:57] LABS: CREATININE,URINE 136.7 mg/dL; MICROALBUM/CREATININE RATIO,UR 27.8 ug/mg (<30.0); MICROALBUMIN,URINE 3.8 mg/dL (0-300.0)
[2019-10-08 13:58] LABS: HB2 TOTAL 16.6 g/dL; HEMOGLOBIN A1C 1.02 g/dL; HEMOGLOBIN A1C % 7.8 % (4.6-6.2)
[2019-10-08 14:15] LABS: ALBUMIN 4.3 g/dL (3.2-5.5); ALBUMIN/GLOBULIN RATIO 1.4 (1.0-2.2); ALKALINE PHOSPHATASE 50 IU/L (42-121); ALT ALANINE AMINOTRANSFERASE 20 IU/L (10-60); AST ASPARTATE AMINOTRANSFERASE 18 IU/L (10-42); BUN - BLOOD UREA NITROGEN 29 mg/dL (6-20); CALCIUM 9.2 mg/dL (8.5-10.3); CARBON DIOXIDE - CO2 28 mmol/L (21-32); CHLORIDE 104 mmol/L (101-111); CHOL/HDL RATIO 4.2 (<5.0); CHOLESTEROL 113 mg/dL; CREATININE 1.4 mg/dL (0.6-1.2); GLUCOSE 125 mg/dL (70-100); HDL CHOLESTEROL 27 mg/dL; LDL CHOLESTEROL,CALCULATED 50 mg/dL; LDL/HDL RATIO 1.9 (<3.6); SODIUM 138 mmol/L (135-145); TOTAL PROTEIN 7.4 g/dL (6.7-8.2); VLDL CHOLESTEROL 36 mg/dL
== END 2019-10-08 23:59 | disposition home or self-care (01) ==
LOC: LAB.WCP 11:49
PROVIDERS: ATTEND Family Medicine
DX: I65.21 Occlusion and stenosis of right carotid artery (principal); R06.09 Other forms of dyspnea; N40.0 Benign prostatic hyperplasia without lower urinary tract symptoms; E11.9 Type 2 diabetes mellitus without complications
CPT/HCPCS: 36415; 80053; 80061; 82043; 82570; 83036; 83721; 83880; 84443; 85025

== ENCOUNTER 2020-06-24 15:59 | Outpatient (CLI) | payer MEDICARE, OTHER ==
[2020-06-24] MEDS ORDERED: GADOBUTROL 10 MMOL/10 ML VIAL ONE (16:25)
[2020-06-24 16:53] LABS: CALCIUM 9.2 mg/dL (8.5-10.3); CREATININE 1.3 mg/dL (0.6-1.2)
[2020-06-24] MEDS ORDERED: GADOBUTROL 10 MMOL/10 ML VIAL IVP ONE (17:29)
--- NOTE | 2020-06-24 18:18 | MRI Report ---
PROCEDURE: Angio Neck W/WO (MRA) INDICATIONS: CAROTID ARTERY STENOSIS, SUBCLAVIAN STEAL SYNDROME CONTRAST: 10 cc Gadavist TECHNIQUE: Axial and sagittal balanced GE through the neck. Coronal dynamic MRA after the administration of con trast in the arterial and venous phases, with rotating 3-dimensional maximum intensity projection (IA P) reformats constructed from subtraction images. There is patient, additional axial T2 and FLAIR im ages were also performed. COMPARISON: Correlation is made with prior head CT, 09/02/16. FINDINGS: Image quality: Excellent. Carotid system: Great vessels demonstrate a conventional anatomy as they arise from the aortic arch. The origins of the common carotid arteries appear normal. The calibers and courses of the common c arotid arteries are likewise normal. The carotid bifurcations appear normal bilaterally. The internal sales al carotid arteries are widely patent up to the [place]. Tortuosity is noted of the interna l carotid arteries, left worse than right. Posterior circulation: The origins of the vertebral arteries are unremarkable. Portions of the righ t proximal vertebral artery are not well seen and may be highly stenotic. The more superior portions of the vertebral arteries demonstrate normal course and caliber. Vertebral arteries join to form a n ormal appearing basilar artery. On the axial 2-D [id number] images, antegrade flow is observed within both vertebral arteries. Th e left vertebral artery is dominant to the right. Miscellaneous: There is a 50-70% stenosis seen involving the right subclavian artery artery, just pr oximal to the origin of the right vertebral artery as on series 701 image 95. Pre-contrast images through the neck demonstrate no soft tissue abnormalities. IMPRESSION: Subclavian steal syndrome is not observed. There is antegrade flow confirmed within both vertebral ar teries. Portions of the right proximal vertebral artery are not well seen and may be highly stenotic. There is a 50-70% stenosis seen involving the right distal subclavian artery, just proximal to the or igin of the right vertebral artery. If clinically appropriate, please consider a confirmatory follow-up CT angiogram. Reviewed by: Mir Packer MD on 06/24/2020 5:16 PM AKST Approved by: Mir Packer MD on 06/24/2020 5:16 PM [place] Station ID: [id number]
== END 2020-06-24 16:00 | disposition home or self-care (01) ==
LOC: DI 15:59
PROVIDERS: ATTEND Physician Assistant Medical
DX: I65.21 Occlusion and stenosis of right carotid artery (principal); N40.0 Benign prostatic hyperplasia without lower urinary tract symptoms
CPT/HCPCS: 36415; 70549; 80048; A9585

== ENCOUNTER 2020-11-25 17:09 | Outpatient (CLI) | payer OTHER, MEDICARE | END 2020-11-25 17:10 | disposition critical access hospital (66) | LOC: EMS 17:09 | DX: Z04.1 Encounter for examination and observation following transport accident (principal); M54.2 Cervicalgia | CPT/HCPCS: A0425; A0429 ==

== ENCOUNTER 2020-11-25 17:33 | Emergency (ER) | payer OTHER, MEDICARE ==
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
--- NOTE | 2020-11-25 18:48 | CT Report ---
PROCEDURE: CERVICAL SPINE WO INDICATIONS: neck inj TECHNIQUE: Noncontrast 3 mm thick sections acquired from the skull base to the T4 level. Sagittal and coronal r eformats were then constructed. For radiation dose reduction, the following was used: automated exp osure control, adjustment of mA and/or kV according to patient size. COMPARISON: None. FINDINGS: Image quality: Excellent. Bones: No fractures or dislocations. Visualized superior ribs are intact. Multilevel degenerative changes are present. Soft tissues: Prevertebral soft tissues are normal in thickness. No paravertebral hematomas. No ap ical pneumothoraces. IMPRESSION: Multilevel degenerative changes without visualized fracture. Reviewed by: Shaila Nation MD on 11/25/2020 6:47 PM PDT Approved by: Shaila Nation MD on 11/25/2020 6:47 PM PDT Station ID: [id number]
[2020-11-25] MEDS ORDERED: ACETAMINOPHEN 325 MG TABLET PO STA (19:05)
[2020-11-25 19:17] VITALS: BP 156/95
== END 2020-11-25 19:23 | disposition home or self-care (01) ==
LOC: EDUNIT# → SUPCPDRO 17:33 → ED 17:33
DX: M54.2 Cervicalgia (principal); V43.53XA Car driver injured in collision with pick-up truck in traffic accident, initial encounter; E11.9 Type 2 diabetes mellitus without complications; Z79.84 Long term (current) use of oral hypoglycemic drugs
CPT/HCPCS: 72125; 99282; 99284; A9270

== ENCOUNTER 2021-09-06 08:55 | Outpatient (CLI) | payer MEDICARE, OTHER ==
[2021-09-06 12:29] LABS: CREATININE,URINE 81.1 mg/dL; MICROALBUM/CREATININE RATIO,UR 103.6 ug/mg (<30.0); MICROALBUMIN,URINE 8.4 mg/dL (0-300.0)
[2021-09-06 12:38] LABS: ESTIMATED AVERAGE GLUCOSE 203 mg/dL (70-100); HEMOGLOBIN A1c% 8.7 % (4.27-6.07)
[2021-09-06 12:46] LABS: ALBUMIN 4.3 g/dL (3.2-5.5); ALBUMIN/GLOBULIN RATIO 1.3 (1.0-2.2); ALKALINE PHOSPHATASE 61 IU/L (42-121); ALT ALANINE AMINOTRANSFERASE 15 IU/L (10-60); AST ASPARTATE AMINOTRANSFERASE 15 IU/L (10-42); BILIRUBIN,TOTAL 0.8 mg/dL (0.2-1.0); BUN - BLOOD UREA NITROGEN 31 mg/dL (6-20); CARBON DIOXIDE - CO2 24 mmol/L (21-32); CHLORIDE 103 mmol/L (101-111); CHOL/HDL RATIO 4.8 (<5.0); CHOLESTEROL 133 mg/dL; CREATININE 1.2 mg/dL (0.6-1.2); GFR - MDRD 59 (>89); GLUCOSE 177 mg/dL (70-100); HDL CHOLESTEROL 28 mg/dL; LDL CHOLESTEROL,CALCULATED 57 mg/dL; POTASSIUM 4.2 mmol/L (3.5-5.0); SODIUM 136 mmol/L (135-145); TOTAL PROTEIN 7.6 g/dL (6.7-8.2); TRIGLYCERIDES 239 mg/dL; VLDL CHOLESTEROL 48 mg/dL
[2021-09-06 12:56] LABS: THYROID STIMULATING HORMONE 2.96 uIU/mL (0.34-5.60)
[2021-09-06 13:01] LABS: BASOPHILS # (AUTO) 0.1 10^3/uL (0.0-0.1); BASOPHILS % (AUTO) 0.6 %; EOSINOPHILS # (AUTO) 0.2 10^3/uL (0.0-0.7); EOSINOPHILS % (AUTO) 2.7 %; HCT - HEMATOCRIT 49.5 % (42.0-52.0); HGB - HEMOGLOBIN 16.5 g/dL (14.0-18.0); LYMPHOCYTES # (AUTO) 1.7 10^3/uL (1.5-3.5); LYMPHOCYTES % (AUTO) 20.7 %; MEAN CORPUSCULAR HGB CONC 33.3 g/dL (32.0-36.0); MEAN PLATELET VOLUME 11.5 fL (7.4-11.4); MONOCYTES # (AUTO) 0.7 10^3/uL (0.0-1.0); MONOCYTES % (AUTO) 8.1 %; NEUTROPHILS # (AUTO) 5.5 10^3/uL (1.5-6.6); NEUTROPHILS % (AUTO) 67.7 %; PLT - PLATELET COUNT 133 10^3/uL (130-450); RED BLOOD COUNT 5.32 10^6/uL (4.70-6.10); RED CELL DISTRIBUTION WIDTH 13.2 % (12.0-15.0); WHITE BLOOD COUNT 8.1 x10^3/uL (4.8-10.8)
== END 2021-09-06 08:56 | disposition home or self-care (01) ==
LOC: LAB.N 08:55
PROVIDERS: ATTEND Physician Assistant Medical
DX: I10 Essential (primary) hypertension (principal); E78.00 Pure hypercholesterolemia, unspecified; E11.9 Type 2 diabetes mellitus without complications
CPT/HCPCS: 36415; 80053; 80061; 82043; 82570; 83036; 83721; 84443; 85025

== ENCOUNTER 2021-12-30 17:50 | Outpatient (CLI) | payer MEDICARE, OTHER | END 2021-12-30 17:51 | disposition critical access hospital (66) | LOC: EMS 17:50 | DX: S00.31XA Abrasion of nose, initial encounter (principal); S80.212A Abrasion, left knee, initial encounter; S80.211A Abrasion, right knee, initial encounter; S60.419A Abrasion of unspecified finger, initial encounter; W01.198A Fall on same level from slipping, tripping and stumbling with subsequent striking against other object, initial encounter; Y92.481 Parking lot as the place of occurrence of the external cause | CPT/HCPCS: A0425; A0429 ==

== ENCOUNTER 2021-12-30 18:08 | Emergency (ER) | payer MEDICARE, OTHER ==
[2021-12-30 18:19] VITALS: BP 130/83
--- NOTE | 2021-12-30 18:53 | ED Physician Documentation ---
History of Present Illness - Stated complaint Stated Complaint: GLF - Chief complaint Chief Complaint: Trauma Hd/Nk PD PAST MEDICAL HISTORY - Past Medical History Past Medical History: Yes Cardiovascular: Hypertension, High cholesterol, Coronary artery disease Respiratory: Asthma Endocrine/Autoimmune: Type 2 diabetes GI: GERD : Retention, Renal insuffiency Psych: Depression, Anxiety, Post traumatic stress disorder Musculoskeletal: Fatigue Derm: None - Past Surgical History Past Surgical History: Yes /[employer]: Other (BPH) - Present Medications Home Medications: Ambulatory Orders Medication Instructions Recorded Confirmed Cetirizine [ZyrTEC] 10 mg PO DAILY 07/14/14 11/25/20 Gabapentin [Neurontin] 600 mg PO DAILY 07/14/14 11/25/20 Ipratropium/Albuterol [Duoneb] 3 ml INH QID 07/14/14 11/25/20 Losartan [Cozaar] 50 mg PO DAILY 07/14/14 11/25/20 Sertraline HCl [Zoloft] 150 mg PO DAILY 07/14/14 11/25/20 Simvastatin [Zocor] 40 mg PO DAILY 07/14/14 11/25/20 Sitagliptin Phos/Metformin HCl 1 tab PO BIDWM 07/14/14 11/25/20 [Janumet 50-1,000 mg Tablet] Tamsulosin [Flomax] 0.4 mg PO DAILY 07/14/14 11/25/20 Albuterol Sulfate [Proair Hfa 2 puffs INH Q4H PRN 12/26/16 11/25/20 Inhaler] Aspirin [Aspirin EC] 81 mg PO DAILY 12/26/16 11/25/20 Fluticasone/Salmeterol [Advair 1 puffs INH BID 12/26/16 11/25/20 250-50 Diskus] buPROPion HCL [Bupropion Xl] 150 mg PO DAILY 12/26/16 11/25/20 Chlorhexidine Gluconate [Peridex] 15 ml MM BID #1 mouthwash 12/27/16 11/25/20 metroNIDAZOLE [Flagyl] 500 mg PO Q6HR #40 tablet 12/27/16 11/25/20 - Allergies Allergies/Adverse Reactions: Allergies Allergy/AdvReac Type Severity Reaction Status Date / Time Penicillins Allergy Unknown Verified 12/30/21 18:13 - Social History Does the pt smoke?: No Smoking Status: Never smoker Does the pt drink ETOH?: No Does the pt have substance abuse?: No - Immunizations Immunizations are current?: Yes - POLST Patient has POLST: No POLST Status: Full Code Results - Vitals Vitals: Vital Signs - 24 hr 12/30/21 18:14 Temperature 37.0 C Heart Rate 96 Respiratory 18 Rate Blood Pressure 130/83 H O2 Saturation 96 Oxygen O2 Source Room air
--- NOTE | 2021-12-30 18:56 | ED Physician Documentation ---
History of Present Illness - Stated complaint Stated Complaint: GLF - Chief complaint Chief Complaint: Trauma Hd/Nk - Additonal information Additional information: 76-year-old male presents emergency department for evaluation of facial injury after mechanical ground-level fall. He was walking in the [employer] parking lot when he tripped on one of the parking curbs. He fell directly onto his knees and struck his face on the concrete. He did not lose consciousness. He is not anticoagulated. He does present with a large abrasion on the bridge of his nose as well as some right-sided epistaxis. He is in a rigid cervical collar. He reports that both his knees hurt due to abrasions as well as he has some right wrist pain. Review of Systems Constitutional: denies: Fever, Chills Eyes: reports: Reviewed and negative Nose: reports: Congestion, Epistaxis Throat: reports: Reviewed and negative Cardiac: reports: Reviewed and negative Respiratory: reports: Reviewed and negative GI: denies: Abdominal Pain Skin: reports: Abrasion (s) Musculoskeletal: reports: Neck pain, Joint pain. denies: Back pain, Extremity pain Neurologic: reports: Head injury. 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) - Present Medications Home Medications: Ambulatory Orders Medication Instructions Recorded Confirmed Cetirizine [ZyrTEC] 10 mg PO DAILY 07/14/14 11/25/20 Gabapentin [Neurontin] 600 mg PO DAILY 07/14/14 11/25/20 Ipratropium/Albuterol [Duoneb] 3 ml INH QID 07/14/14 11/25/20 Losartan [Cozaar] 50 mg PO DAILY 07/14/14 11/25/20 Sertraline HCl [Zoloft] 150 mg PO DAILY 07/14/14 11/25/20 Simvastatin [Zocor] 40 mg PO DAILY 07/14/14 11/25/20 Sitagliptin Phos/Metformin HCl 1 tab PO BIDWM 07/14/14 11/25/20 [Janumet 50-1,000 mg Tablet] Tamsulosin [Flomax] 0.4 mg PO DAILY 07/14/14 11/25/20 Albuterol Sulfate [Proair Hfa 2 puffs INH Q4H PRN 12/26/16 11/25/20 Inhaler] Aspirin [Aspirin EC] 81 mg PO DAILY 12/26/16 11/25/20 Fluticasone/Salmeterol [Advair 1 puffs INH BID 12/26/16 11/25/20 250-50 Diskus] buPROPion HCL [Bupropion Xl] 150 mg PO DAILY 12/26/16 11/25/20 Chlorhexidine Gluconate [Peridex] 15 ml MM BID #1 mouthwash 12/27/16 11/25/20 metroNIDAZOLE [Flagyl] 500 mg PO Q6HR #40 tablet 12/27/16 11/25/20 - Allergies Allergies/Adverse Reactions: Allergies Allergy/AdvReac Type Severity Reaction Status Date / Time Penicillins Allergy Unknown Verified 12/30/21 18:13 - Social History Does the pt smoke?: No Smoking Status: Never smoker Does the pt drink ETOH?: No Does the pt have substance abuse?: No - Immunizations Immunizations are current?: Yes - POLST Patient has POLST: No POLST Status: Full Code PD ED PE NORMAL - General General: Alert and oriented X 3, No acute distress, Well developed/nourished - HEENT HEENT: PERRL, EOMI, Other (Superficial abrasion on the bridge of the nose. No hemotympanums. Negative raccoon eyes, negative poon sign). No: Moist mucous membranes (Dry mouth) - Cardiac Cardiac: RRR, No murmur - Respiratory Respiratory: No respiratory distress, Clear bilaterally - Abdomen Abdomen: Normal bowel sounds, Soft - Back Back: No CVA TTP, No spinal TTP (No tenderness elicited of the cervical, thoracic or lower lumbar spine. No pain in the hips with external or internal rotation bilaterally. Full active range of motion) - Derm Derm: Normal color, Warm and dry - Extremities Extremities: No deformity. No: No tenderness to palpate (Mild tenderness to palpation on the dorsum of the right wrist. No snuffbox tenderness. Normal flexion extension. 2+ radial pulse. Normal grasp.) - Neuro Neuro: Alert and oriented X 3, podiatrist 2-12 intact Eye Opening: Spontaneous Motor: Obeys Commands Verbal: Oriented GCS Score: 15 - Psych Psych: Normal mood Results - Vitals Vitals: Vital Signs - 24 hr 12/30/21 18:14 Temperature 37.0 C Heart Rate 96 Respiratory 18 Rate Blood Pressure 130/83 H O2 Saturation 96 Oxygen O2 Source Room air - Labs Labs: Laboratory Tests 12/30/21 12/30/21 19:12 19:12 WBC 6.7 RBC 4.84 Hgb 15.2 Hct 45.0 MCV 93.0 MCH 31.4 H MCHC 33.8 RDW 13.7 Plt Count 129 L MPV 10.6 Neut # (Auto) 4.4 Lymph # (Auto) 1.4 L [place] # (Auto) 0.5 Eos # (Auto) 0.3 Baso # (Auto) 0.1 Absolute Nucleated RBC 0.00 Nucleated RBC % 0.0 Sodium 137 Potassium 4.3 Chloride 105 Carbon Dioxide 25 Anion Gap 7.0 BUN 27 H Creatinine 1.2 Estimated GFR (MDRD) 59 L Glucose 177 H Calcium 9.2 - Rads (name of study) Cervical CT Radiology: Final report received (No acute fracture or traumatic subluxation of the cervical spine) CT HEAD Radiology: Final report received (No acute intracranial abnormality) maxfac CT Radiology: Final report received (No definite acute fracture. Medial left orbital wall deformity rightward septal deviation and small nasal bone deformity without soft tissue swelling probably old. Fluid in the maxillary sinus correlate for sinusitis) right wrist Radiology: Final report received, EMP read indepedently PD MEDICAL DECISION MAKING - ED course Complexity details: reviewed results, re-evaluated patient, considered differential, d/w patient ED course: 76-year-old male presents emergency department via EMS in a rigid cervical collar after ground-level fall at the [employer] parking lot in which he tripped on one of the parking curbs. Fell directly onto his knees and struck his face on the concrete. There is a large abrasion over his nose. He denies loss of consciousness. There was no anticoagulation on board. He presents to the emergency department [place] of 15 without focal deficits. Given the findings of facial trauma and his age as well as history of diabetes we did proceed with CT imaging of the cervical spine head and neck. CT of the head and neck were negative. CT imaging of the maxillofacial field reveals likely an old orbital injury though the patient cannot elicit trauma in the past. He had reported right wrist pain. There is mild tenderness on the dorsum of the right wrist without deformity. No snuffbox tenderness. My interpretation of the right wrist x-ray is that it is negative. I personally removed his cervical collar and he was able to fully range his neck in all planes without pain. He was then ambulated easily in the hallway without any difficulty. He has been hemodynamically stable on the registered nurse cardiac telemetry he is in sinus rhythm without any electrical abnormalities noted. No ectopy. He is tolerating sips of clear liquids and is now stable for discharge home. Advised to discuss this ED visit with his primary care provider. Emergent return precautions were discussed for worsening symptoms. Departure - Departure Disposition: Home, Self Care Clinical Impression: Fall from ground level Nasal contusion Qualifiers: Encounter type: initial encounter Qualified Code(s): S00.33XA - Contusion of nose, initial encounter Condition: Stable Record reviewed to determine appropriate education?: Yes Comments: While you are seen today in the emergency department after you tripped on the parking curve at [employer] and fell onto the concrete. You do have an abrasion on your nose but the CT of the head does not show any new fractures. It does suggest that at some remote time in the past you may have sustained a fracture to your left orbital wall however this is a remote injury. The CT of your head and neck did not show any worrisome findings. The x-ray of your wrist is normal. I expect that you will be generally sore and tender over the next 48 to 72 hours. You can continue to take routine [id number]-[id number] pain medication such as Tylenol or ibuprofen for discomfort. I would expect that after 3 to 4 days you are beginning to feel better. Stay well-hydrated. If at any point you find that you have any loss of consciousness, sudden severe pain in your low back, uncontrolled vomiting fevers then please return immediately to the ER for second evaluation.
--- NOTE | 2021-12-30 19:15 | CT Report ---
PROCEDURE: HEAD WO INDICATIONS: GLF TECHNIQUE: Noncontrast 4.5 mm thick angled axial sections acquired from the foramen magnum to the vertex. For r adiation dose reduction, the following was used: automated exposure control, adjustment of mA and/or kV according to patient size. COMPARISON: None. FINDINGS: Image quality: Motion limits evaluation CSF spaces: Basal cisterns are patent. No extra-axial fluid collections. Ventricles are normal in size and shape. Mild to moderate volume loss. Brain: No midline shift. No intracranial masses or hemorrhage. [place]-white matter interface is norm al. Mild periventricular white matter hypoattenuation likely reflects chronic small vessel disease. Skull and face: Calvarium and visualized facial bones are intact, without suspicious lesions. Sinuses: Visualized sinuses and mastoids are clear. IMPRESSION: No acute intracranial abnormality. Maxillofacial findings are separately dictated. Reviewed by: Case Wetzel MD on 12/30/2021 7:13 PM PDT Approved by: Case Wetzel MD on 12/30/2021 7:13 PM PDT Station ID: [id number]
[2021-12-30 19:18] LABS: BASOPHILS # (AUTO) 0.1 10^3/uL (0.0-0.1); BASOPHILS % (AUTO) 0.8 %; EOSINOPHILS # (AUTO) 0.3 10^3/uL (0.0-0.7); EOSINOPHILS % (AUTO) 3.8 %; HGB - HEMOGLOBIN 15.2 g/dL (14.0-18.0); LYMPHOCYTES # (AUTO) 1.4 10^3/uL (1.5-3.5); LYMPHOCYTES % (AUTO) 21.6 %; MEAN CORPUSCULAR HEMOGLOBIN 31.4 pg (27.0-31.0); MEAN CORPUSCULAR HGB CONC 33.8 g/dL (32.0-36.0); MEAN PLATELET VOLUME 10.6 fL (7.4-11.4); MONOCYTES # (AUTO) 0.5 10^3/uL (0.0-1.0); MONOCYTES % (AUTO) 8.1 %; NEUTROPHILS # (AUTO) 4.4 10^3/uL (1.5-6.6); NEUTROPHILS % (AUTO) 65.4 %; PLT - PLATELET COUNT 129 10^3/uL (130-450); RED BLOOD COUNT 4.84 10^6/uL (4.70-6.10); RED CELL DISTRIBUTION WIDTH 13.7 % (12.0-15.0); WHITE BLOOD COUNT 6.7 x10^3/uL (4.8-10.8)
[2021-12-30 19:24] LABS: CALCIUM 9.2 mg/dL (8.5-10.3); CREATININE 1.2 mg/dL (0.6-1.2); POTASSIUM 4.3 mmol/L (3.5-5.0)
--- NOTE | 2021-12-30 19:28 | CT Report ---
PROCEDURE: CERVICAL SPINE WO INDICATIONS: GLF; c-collar TECHNIQUE: Noncontrast 3 mm thick sections acquired from the skull base to the T4 level. Sagittal and coronal r eformats were then constructed. For radiation dose reduction, the following was used: automated exp osure control, adjustment of mA and/or kV according to patient size. COMPARISON: None. FINDINGS: Image quality: Excellent. Bones: No fractures or dislocations. Visualized superior ribs are intact. Mild spondylosis. 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 Soft tissues: Prevertebral soft tissues are normal in thickness. No paravertebral hematomas. No ap ical pneumothoraces. IMPRESSION: No acute fracture of traumatic subluxation of the cervical spine. Reviewed by: Case Wetzel MD on 12/30/2021 7:26 PM PDT Approved by: Case Wetzel MD on 12/30/2021 7:26 PM PDT Station ID: [id number]
--- NOTE | 2021-12-30 19:34 | CT Report ---
PROCEDURE: MAXILLOFACIAL WO INDICATIONS: GLF: nasal epistaxis TECHNIQUE: Noncontrast 1.5 mm thick axial images acquired from the mandible through the frontal sinuses, with co crystal and sagittal reformatting. For radiation dose reduction, the following was used: automated ex posure control, adjustment of mA and/or kV according to patient size. COMPARISON: None. FINDINGS: Image quality: Excellent. Bones and teeth: Chronic appearing left medial orbital wall deformity Sinus diehl show no fracture or deformity. Nasal bone deformity with overlying soft tissue swelling to suggest acuity. Rightward nasal septal de viation. Visualized portions of the mandible demonstrate no fractures or subluxation. Zygomatic arch es are intact. Pterygoid plates are intact. Visualized portions of the skull base and auditory trevor ls are intact. Sinuses: Aerated mastoid air cells. There is fluid in the left maxillary sinus. Mild right maxillary mucosal thickening. Soft tissues: No edema, masses, or fluid collections. No enlarged lymph nodes. No soft tissue lace rations or debris. Vascular: Visualized vascular structures appear normal in the absence of contrast. Bony vascular fo ramina and canals are intact. IMPRESSION: No definite acute fracture. Medial left orbital wall deformity, rightward nasal septal d eviation, and small nasal bone deformity without soft tissue swelling, probably old. Fluid in the left maxillary sinus, correlate for sinusitis. Reviewed by: Case Wetzel MD on 12/30/2021 7:32 PM PDT Approved by: Case Wetzel MD on 12/30/2021 7:32 PM PDT Station ID: [id number]
--- NOTE | 2021-12-30 20:33 | XRAY Report ---
PROCEDURE: Wrist 3 View RT INDICATIONS: pain; glf TECHNIQUE: 3 views of the wrist were acquired. COMPARISON: None FINDINGS: Bones: No fractures or dislocations. No suspicious bony lesions. Soft tissues: No suspicious soft tissue calcifications. IMPRESSION: No acute fracture or dislocation. Consider cross-sectional imaging if there is high concern for occult injury. Reviewed by: Case Wetzel MD on 12/30/2021 8:32 PM PDT Approved by: Case Wetzel MD on 12/30/2021 8:32 PM PDT Station ID: [id number]
== END 2021-12-30 20:38 | disposition home or self-care (01) ==
LOC: EDUNIT# → ED 18:08
DX: S00.31XA Abrasion of nose, initial encounter (principal); S80.212A Abrasion, left knee, initial encounter; S80.211A Abrasion, right knee, initial encounter; W01.198A Fall on same level from slipping, tripping and stumbling with subsequent striking against other object, initial encounter; Y93.01 Activity, walking, marching and hiking; Y92.481 Parking lot as the place of occurrence of the external cause; E11.9 Type 2 diabetes mellitus without complications; Z79.84 Long term (current) use of oral hypoglycemic drugs
CPT/HCPCS: 36415; 80048; 85025; 99282; 99284

== ENCOUNTER 2023-01-23 15:09 | Outpatient (CLI) | payer MEDICARE, OTHER ==
[2023-01-23 18:03] LABS: ALBUMIN 4.4 g/dL (3.2-5.5); ALBUMIN/GLOBULIN RATIO 1.5 (1.0-2.2); ALKALINE PHOSPHATASE 60 IU/L (42-121); ALT ALANINE AMINOTRANSFERASE 16 IU/L (10-60); AST ASPARTATE AMINOTRANSFERASE 15 IU/L (10-42); BILIRUBIN,TOTAL 0.7 mg/dL (0.2-1.0); BUN - BLOOD UREA NITROGEN 18 mg/dL (6-20); CALCIUM 9.6 mg/dL (8.5-10.3); CARBON DIOXIDE - CO2 28 mmol/L (21-32); CHLORIDE 104 mmol/L (101-111); CHOL/HDL RATIO 4.4 (<5.0); CHOLESTEROL 141 mg/dL; CREATININE 1.3 mg/dL (0.6-1.3); GFR - MDRD 53 (>89); GLUCOSE 173 mg/dL (74-104); HDL CHOLESTEROL 32 mg/dL; LDL CHOLESTEROL,CALCULATED 63 mg/dL; POTASSIUM 4.5 mmol/L (3.5-4.5); SODIUM 138 mmol/L (135-145); TOTAL PROTEIN 7.4 g/dL (6.4-8.9); TRIGLYCERIDES 231 mg/dL (48-352); VLDL CHOLESTEROL 46 mg/dL
[2023-01-23 21:32] LABS: ESTIMATED AVERAGE GLUCOSE 220 mg/dL (70-100); HEMOGLOBIN A1c% 9.3 % (4.27-6.07)
== END 2023-01-23 15:10 | disposition home or self-care (01) ==
LOC: LAB.N 15:09
PROVIDERS: ATTEND Physician Assistant Medical
DX: E11.9 Type 2 diabetes mellitus without complications (principal)
CPT/HCPCS: 36415; 80053; 80061; 83036; 83721

== ENCOUNTER 2023-02-06 02:31 | Outpatient (CLI) | payer MEDICARE, OTHER | END 2023-02-06 23:59 | disposition critical access hospital (66) | LOC: EMS 02:31 | DX: M25.511 Pain in right shoulder (principal); R07.89 Other chest pain; M79.601 Pain in right arm | CPT/HCPCS: A0425; A0429 ==

== ENCOUNTER 2023-02-06 02:51 | Emergency (ER) | payer MEDICARE, OTHER ==
--- NOTE | 2023-02-06 02:50 | ED Physician Documentation ---
PD HPI CHEST PAIN - Stated complaint Stated Complaint: R SHOULDER PX - History obtained from History obtained from: Patient, EMS - Additional information Additional information: BIBA. HPI from patient, EMS. 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 The pain is constant and has steadily worsened throughout the day; he has been unable to sleep tonight due to the pain. He says the pain is distinctly w orse with movement of the right shoulder, with lesser component of exacerbation with palpation of anterolateral aspect of shoulder. The pain intermittently radiates to right trapezius and he also has episodic paresthesias/numbness down the right arm. Denies h/o similar symptoms. Denies dyspnea, chest pain, nausea, diaphoresis. Denies recent injury. 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 He also had already taken 650mg acetaminophen earlier tonight. Review of Systems Constitutional: denies: Fever Cardiac: reports: Reviewed and negative Respiratory: reports: Reviewed and negative GI: reports: Reviewed and negative Skin: denies: Rash Musculoskeletal: reports: Joint pain. denies: Neck pain, Back pain, Joint swelling Neurologic: reports: Numbness (intermittent/episodic RUE). denies: Focal weakness PD PAST MEDICAL HISTORY - Past Medical History Past Medical History: Yes Cardiovascular: Hypertension, High cholesterol Respiratory: Asthma Endocrine/Autoimmune: Type 2 diabetes - Present Medications Home Medications: Ambulatory Orders Medication Instructions Recorded Confirmed Cetirizine [ZyrTEC] 10 mg PO DAILY 07/14/14 11/25/20 Gabapentin [Neurontin] 600 mg PO DAILY 07/14/14 11/25/20 Ipratropium/Albuterol [Duoneb] 3 ml INH QID 07/14/14 11/25/20 Losartan [Cozaar] 50 mg PO DAILY 07/14/14 11/25/20 Sertraline HCl [Zoloft] 150 mg PO DAILY 07/14/14 11/25/20 Simvastatin [Zocor] 40 mg PO DAILY 07/14/14 11/25/20 Sitagliptin Phos/Metformin HCl 1 tab PO BIDWM 07/14/14 11/25/20 [Janumet 50-1,000 mg Tablet] Tamsulosin [Flomax] 0.4 mg PO DAILY 07/14/14 11/25/20 Albuterol Sulfate [Proair Hfa 2 puffs INH Q4H PRN 12/26/16 11/25/20 Inhaler] Aspirin [Aspirin EC] 81 mg PO DAILY 12/26/16 11/25/20 Fluticasone/Salmeterol [Advair 1 puffs INH BID 12/26/16 11/25/20 250-50 Diskus] buPROPion HCL [Bupropion Xl] 150 mg PO DAILY 12/26/16 11/25/20 Chlorhexidine Gluconate [Peridex] 15 ml MM BID #1 mouthwash 12/27/16 11/25/20 metroNIDAZOLE [Flagyl] 500 mg PO Q6HR #40 tablet 12/27/16 11/25/20 - Allergies Allergies/Adverse Reactions: Allergies Allergy/AdvReac Type Severity Reaction Status Date / Time Penicillins Allergy Unknown Verified 12/30/21 18:13 PD ED PE NORMAL - Vitals Vital signs reviewed: Yes - General General: Alert and oriented X 3, No acute distress (NAD at rest, mild painful distress with ROM involving right shoulder), Well developed/nourished - Neck Neck: No bony TTP - Cardiac Cardiac: RRR, No murmur, No gallop, No rub - Respiratory Respiratory: No respiratory distress, Clear bilaterally - Abdomen Abdomen: Soft, Non tender - Derm Derm: Normal color, Warm and dry, No rash - Extremities Extremities: No edema - Neuro Neuro: No sensory deficit (LTS intact RUE) PD ED PE EXPANDED - Extremities Extremities: Tenderness (TTP anterolateral aspect of right shoulder), Limited ROM (right shoulder due to pain (mostly with abduction, less so with flexion, extension, and external rotation)). No: Swelling Results - Vitals Vitals: Vital Signs - 24 hr 02/06/23 02/06/23 02/06/23 02:53 03:48 05:35 Temperature 36.7 C Heart Rate 88 87 65 Respiratory 16 18 16 Rate Blood Pressure 141/79 H 122/63 136/73 H O2 Saturation 96 93 94 Oxygen O2 Source Room air - EKG (time done) No standard instances EKG releavant findings:: EKG personally interpreted by author of this note. Relevant findings are: Rate: Rate (enter#) (89) Rhythm: NSR [place]: LAD (borderline LAD) Intervals: Normal [place], Wide QRS (IVCD, suspect atypical RBBB (RBBB is seen on a previous EKG)) QRS: Normal Ischemia: Normal ST segments Compare to prior EKG: Unchanged from prior EKG Computer interpretation: Disagree with computer (No ST changes (disagree with computer interpretation of inferior lead ST elevation)) - Labs Labs: Laboratory Tests 02/06/23 02/06/23 03:41 03:41 WBC 8.9 RBC 5.02 Hgb 15.8 Hct 46.3 MCV 92.2 MCH 31.5 H MCHC 34.1 RDW 13.3 Plt Count 129 L MPV 10.5 Neut # (Auto) 6.3 Lymph # (Auto) 1.6 [place] # (Auto) 0.9 Eos # (Auto) 0.1 Baso # (Auto) 0.1 Absolute Nucleated RBC 0.00 Nucleated RBC % 0.0 Sodium 136 Potassium 4.5 Chloride 107 Carbon Dioxide 22 Anion Gap 7.0 BUN 21 H Creatinine 1.0 Estimated GFR (MDRD) 72 L Glucose 131 H Calcium 9.5 Total Bilirubin 0.7 AST 12 ALT 10 Alkaline Phosphatase 57 Troponin I High Sens 5.7 Total Protein 7.0 Albumin 4.4 Globulin 2.6 Albumin/Globulin Ratio 1.7 Lipase 48 - Rads (name of study) chest xray Relevant Findings:: Prelim report reviewed, EMP independent interpretation of test (I reviewed these images and my interpretation is no acute abnoramlity ), See rad report right shoulder xrays Relevant Findings:: Prelim report reviewed, EMP independent interpretation of test (I reviewed these images and my interpretation is no acute nor chronic abnormalities), See rad report PD Medical Decision Making - ED course Complexity details: reviewed results, re-evaluated patient, considered differential, d/w patient ED course: Tests ordered and results reviewed by me: CBC, ER abdominal panel, hs-cTn, EKG, chest xray, right shoulder xray. There are no concerning nor diagnostic findings on these tests. Patient's HPI is s/o musculoskeletal etiology given distinct worsening of symptoms with movement of right shoulder. Nerve impingement also considered, given the episodic paresthesias/numbness radiating down the RUE. Given lack of injury or recent overuse (such as repetitive or strenuous activity), atypical anginal equivalent (right shoulder pain with radiation to neck and down RUE) is considered, though unlikely and thus a cardiac-oriented workup was undertaken as noted, above. Results d/w patient. He is asleep when I go to reevaluate him, awakens to voice combined with gentle tactile (tapping/gently shaking left shoulder). return precautions are discussed. He has an appointment already scheduled for next week with PCP. Departure - Departure Disposition: 01 Home, Self Care Clinical Impression: Shoulder pain, right Qualifiers: Chronicity: acute Qualified Code(s): M25.511 - Pain in right shoulder Condition: Good Instructions: ED Shoulder Pain [facility] Follow-Up: Roro Pompa PA-C [Primary Care Provider] - Within 1 week Comments: There were no concerning nor diagnostic findings on elza's test, including the blood tests, EKG, chest x-ray, and right shoulder xrays. The cause of your symptoms is not apparent at this time. Follow-up with your primary care provider next week as scheduled. Consider contacting the primary care provider's office before your appointment to let them know that you were in the emergency department [facility]; this would allow for some time for your primary care provider to obtain records/results from [facility]'s ER visit if they need them. Forms: PCP List Discharge Date/Time: 02/06/23 05:39
[2023-02-06 03:48] LABS: BASOPHILS # (AUTO) 0.1 10^3/uL (0.0-0.1); BASOPHILS % (AUTO) 0.6 %; EOSINOPHILS # (AUTO) 0.1 10^3/uL (0.0-0.7); EOSINOPHILS % (AUTO) 1.1 %; HCT - HEMATOCRIT 46.3 % (42.0-52.0); HGB - HEMOGLOBIN 15.8 g/dL (14.0-18.0); LYMPHOCYTES # (AUTO) 1.6 10^3/uL (1.5-3.5); LYMPHOCYTES % (AUTO) 17.7 %; MEAN CORPUSCULAR HEMOGLOBIN 31.5 pg (27.0-31.0); MEAN CORPUSCULAR HGB CONC 34.1 g/dL (32.0-36.0); MEAN CORPUSCULAR VOLUME 92.2 fL (80.0-94.0); MEAN PLATELET VOLUME 10.5 fL (7.4-11.4); MONOCYTES # (AUTO) 0.9 10^3/uL (0.0-1.0); MONOCYTES % (AUTO) 9.7 %; NEUTROPHILS # (AUTO) 6.3 10^3/uL (1.5-6.6); NEUTROPHILS % (AUTO) 70.6 %; PLT - PLATELET COUNT 129 10^3/uL (130-450); RED BLOOD COUNT 5.02 10^6/uL (4.70-6.10); RED CELL DISTRIBUTION WIDTH 13.3 % (12.0-15.0); WHITE BLOOD COUNT 8.9 x10^3/uL (4.8-10.8)
[2023-02-06 04:03] LABS: ALBUMIN 4.4 g/dL (3.2-5.5); ALBUMIN/GLOBULIN RATIO 1.7 (1.0-2.2); BILIRUBIN,TOTAL 0.7 mg/dL (0.2-1.0); CALCIUM 9.5 mg/dL (8.5-10.3); POTASSIUM 4.5 mmol/L (3.5-4.5)
[2023-02-06 04:06] LABS: TROPONIN I HIGH SENSITIVITY 5.7 ng/L (2.3-19.7)
[2023-02-06 05:38] VITALS: BP 136/73; O2SAT 94
--- NOTE | 2023-02-06 08:14 | XRAY Report ---
PROCEDURE: Chest 2 View X-Ray INDICATIONS: right shoulder pain TECHNIQUE: 2 views of the chest were acquired. COMPARISON: None. FINDINGS: Surgical changes and devices: None. Lungs and pleura: No pleural effusions or pneumothorax. Lungs are clear. Mediastinum: Mediastinal contours appear normal. Heart size is normal. Bones and chest wall: No suspicious bony lesions. Overlying soft tissues appear unremarkable. IMPRESSION: No acute cardiopulmonary process. Findings are concordant with preliminary interpretation provided by [facility]. Reviewed by: Kevin Sena MD on 02/06/2023 8:13 AM PDT Approved by: Kevin Sena MD on 02/06/2023 8:13 AM PDT Station ID: [id number]
--- NOTE | 2023-02-06 08:15 | XRAY Report ---
PROCEDURE: Shoulder 3 View RT INDICATIONS: right shoulder pain, no injury TECHNIQUE: 4 views of the shoulder were acquired. COMPARISON: None. FINDINGS: Bones: No fractures or dislocations. No suspicious bony lesions. Visualized ribs appear intact. Soft tissues: No suspicious soft tissue calcifications. The visualized lungs are within normal limi ts. IMPRESSION: No acute bony abnormality. Findings are concordant with preliminary interpretation provided by [facility]. Reviewed by: Kevin Sena MD on 02/06/2023 8:13 AM PDT Approved by: Kevin Sena MD on 02/06/2023 8:13 AM PDT Station ID: [id number]
== END 2023-02-06 05:39 | disposition home or self-care (01) ==
LOC: EDUNIT# → ED 02:51
DX: M25.511 Pain in right shoulder (principal); I10 Essential (primary) hypertension; E11.9 Type 2 diabetes mellitus without complications; Z79.4 Long term (current) use of insulin
CPT/HCPCS: 36415; 80053; 83690; 84484; 85025; 93005; 99283; 99284

== ENCOUNTER 2023-02-08 14:19 | Outpatient (CLI) | payer MEDICARE, OTHER ==
--- NOTE | 2023-02-08 19:32 | Ultrasound Report ---
PROCEDURE: Carotid Doppler Complete INDICATIONS: CAROTID ARTERY STENOSIS TECHNIQUE: Duplex carotid ultrasound was obtained and assisted sales representative images were recorded with veloc ity measurements. Any estimate of stenosis was obtained with reference to standards endorsed by the [employer] COMPARISON: None. FINDINGS: Right side: Brachial blood pressure: 120/63 mm Hg. Common carotid artery peak systolic velocity: 56 cm/sec. Internal carotid artery peak systolic velocity: 58 cm/sec. Internal carotid artery end diastolic velocity: 24 cm/sec. External carotid artery peak systolic velocity: 79 cm/sec. ICA/CCA peak systolic ratio: 1.0 . Fortune scale imaging description: Mild atherosclerotic plaque. Percent internal carotid artery stenosis: Less than 50. Vertebral artery: Flow direction is antegrade. Left side: Brachial blood pressure: 129/76 mm Hg. Common carotid artery peak systolic velocity: 77 cm/sec. Internal carotid artery peak systolic velocity: 58 cm/sec. Internal carotid artery end diastolic velocity: 22 cm/sec. External carotid artery peak systolic velocity: 70 cm/sec. ICA/CCA peak systolic ratio: 0.7 . Fortune scale imaging description: Moderate atherosclerotic plaque. Percent internal carotid artery stenosis: Less than 50. Vertebral artery: Flow direction is antegrade. IMPRESSION: 1. No evidence of hemodynamically significant stenosis, bilateral proximal ICA Reviewed by: Brijesh Godinez MD on 02/08/2023 6:31 PM AMINATA Approved by: Brijesh Godinez MD on 02/08/2023 6:31 PM AMINATA Station ID: [id number]
== END 2023-02-08 14:20 | disposition home or self-care (01) ==
LOC: DI 14:19
PROVIDERS: ATTEND Physician Assistant Medical
DX: M25.511 Pain in right shoulder (principal)
CPT/HCPCS: 93880

== ENCOUNTER 2023-03-01 19:19 | Outpatient (CLI) | payer MEDICARE, OTHER | END 2023-03-01 19:20 | disposition critical access hospital (66) | LOC: EMS 19:19 | DX: S01.81XA Laceration without foreign body of other part of head, initial encounter (principal); W10.8XXA Fall (on) (from) other stairs and steps, initial encounter; Y93.01 Activity, walking, marching and hiking; Y92.008 Other place in unspecified non-institutional (private) residence as the place of occurrence of the external cause | CPT/HCPCS: A0425; A0429 ==

== ENCOUNTER 2023-09-17 18:11 | Outpatient (CLI) | payer MEDICARE, OTHER ==
[2023-09-17 18:19] LABS: BASOPHILS # (AUTO) 0.1 10^3/uL (0.0-0.1); BASOPHILS % (AUTO) 0.7 %; EOSINOPHILS # (AUTO) 0.2 10^3/uL (0.0-0.7); EOSINOPHILS % (AUTO) 2.1 %; HCT - HEMATOCRIT 47.1 % (42.0-52.0); HGB - HEMOGLOBIN 15.3 g/dL (14.0-18.0); LYMPHOCYTES # (AUTO) 1.4 10^3/uL (1.5-3.5); MEAN CORPUSCULAR HEMOGLOBIN 30.1 pg (27.0-31.0); MEAN CORPUSCULAR HGB CONC 32.5 g/dL (32.0-36.0); MEAN CORPUSCULAR VOLUME 92.7 fL (80.0-94.0); MEAN PLATELET VOLUME 11.1 fL (7.4-11.4); MONOCYTES # (AUTO) 0.5 10^3/uL (0.0-1.0); MONOCYTES % (AUTO) 7.2 %; NEUTROPHILS # (AUTO) 5.1 10^3/uL (1.5-6.6); NEUTROPHILS % (AUTO) 70.6 %; PLT - PLATELET COUNT 133 10^3/uL (130-450); RED BLOOD COUNT 5.08 10^6/uL (4.70-6.10); RED CELL DISTRIBUTION WIDTH 13.3 % (12.0-15.0); WHITE BLOOD COUNT 7.3 x10^3/uL (4.8-10.8)
== END 2023-09-17 18:15 | disposition home or self-care (01) ==
LOC: LAB.N 18:11
PROVIDERS: ATTEND Family Medicine
DX: D69.2 Other nonthrombocytopenic purpura (principal)
CPT/HCPCS: 36415; 85025

== ENCOUNTER 2023-10-18 16:27 | Outpatient (CLI) | payer MEDICARE, OTHER | END 2023-10-18 23:59 | disposition short-term general hospital (02) | LOC: EMS 16:27 | DX: R42 Dizziness and giddiness (principal); R53.1 Weakness; R00.0 Tachycardia, unspecified; R07.9 Chest pain, unspecified | CPT/HCPCS: A0425; A0427 ==

== ENCOUNTER 2024-02-16 14:14 | Emergency (ER) | payer MEDICARE, OTHER ==
--- NOTE | 2024-02-16 14:33 | ED Physician Documentation ---
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 Feeling foggy, nausea. No LOC. Has notable headache.) Timing - onset: Today Location of injury: Back Quality of pain: Pain, Aching Associated symptoms: AMS (feeling foggy thought process), Nausea / vomiting (some nausea without vomiting.). No: LOC Contributing factors: No: Anticoagulated Similar symptoms before: Has not had sx before Recently seen: Clinic ( Had COVID 2 months ago and was hospitalized then rehab for 3 weeks. Has been weaker since infection. 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 - Present Medications Home Medications: Ambulatory Orders Medication Instructions Recorded Confirmed Cetirizine [ZyrTEC] 10 mg PO DAILY 07/14/14 06/13/23 Gabapentin [Neurontin] 300 mg PO BID 07/14/14 06/13/23 Ipratropium/Albuterol [Duoneb] 3 ml INH QID 07/14/14 06/13/23 Losartan [Cozaar] 25 mg PO DAILY 07/14/14 06/13/23 Sertraline HCl [Zoloft] 150 mg PO DAILY 07/14/14 06/13/23 Simvastatin [Zocor] 40 mg PO DAILY 07/14/14 06/13/23 Sitagliptin Phos/Metformin HCl 1 tab PO BIDWM 07/14/14 06/13/23 [Janumet 50-1,000 mg Tablet] Tamsulosin [Flomax] 0.4 mg PO DAILY 07/14/14 06/13/23 Albuterol Sulfate [Proair Hfa 2 puffs INH Q4H PRN 12/26/16 06/13/23 Inhaler] Aspirin [Aspirin EC] 81 mg PO DAILY 12/26/16 06/13/23 Fluticasone Propion/Salmeterol 1 puffs INH BID 12/26/16 06/13/23 [Advair 250-50 Diskus] buPROPion HCL [Bupropion Xl] 300 mg PO HS 12/26/16 06/13/23 Empagliflozin [Jardiance] 25 mg PO DAILY 06/13/23 06/13/23 Sildenafil Citrate 50 mg PO ONCE PRN 06/13/23 06/13/23 - Allergies Allergies/Adverse Reactions: Allergies Allergy/AdvReac Type Severity Reaction Status Date / Time Penicillins Allergy Unknown Verified 02/16/24 14:30 - Social History Does the pt smoke?: No Smoking Status: Never smoker Does the pt drink ETOH?: No Does the pt have substance abuse?: No - Immunizations Immunizations are current?: Yes - POLST Patient has POLST: No POLST Status: Full Code PD ED PE NORMAL - Vitals Vital signs reviewed: Yes - General General: Alert and oriented X 3, No acute distress, Well developed/nourished - HEENT HEENT: PERRL, EOMI, Other (tender with local mild swelling and small point puncture/abrasion occiput. NO bleeding nor FB. ) - Neck Neck: Supple, no meningeal sign, No bony TTP - Cardiac Cardiac: RRR, No murmur - Respiratory Respiratory: No respiratory distress, Clear bilaterally - Abdomen Abdomen: Soft, Non tender - Back Back: No spinal TTP - Derm Derm: Normal color, Warm and dry - Neuro Neuro: Alert and oriented X 3, allergist/immunologist 2-12 intact, No motor deficit, No sensory deficit, Normal speech Eye Opening: Spontaneous Motor: Obeys Commands Verbal: Oriented GCS Score: 15 Results - Vitals Vitals: Oxygen O2 Source Room air - Rads (name of study) head CT Relevant Findings:: Prelim report reviewed (no ICH nor acute findings. ), EMP independent interpretation of test PD Medical Decision Making - ED course Complexity details: reviewed old records (recent script refill showed doubled dose for tamsulosin though he does not recall increased dose. This could add to lower BP. Can reduce to one daily and also hold his Losartan for now. F/U PMD.), reviewed results (Head CT without acute findings. Can still have concussive symtoms of course. He did not feel pre-syncope or such. Has had lower BP since COVID and back home from Rehab. ), considered differential (he states he misplaced sitting and slid off seat, falling and struck back of head. He did not feel near syncopal. He has had lower BP recently though and less active. ), d/w patient Reviewed Lab Results: head impact symptoms and moderate headache. some nausea. cannot exclude ICH by criteria/Head Rules given his age over 64. [address] head, which showed no ICH. BP initially low and can have him hold/stop BP meds. The whole physicology can change awhile with COVID/major illness, so he may not need the same insinopril dosing than he did prior. Can hold losartan med for now and decreased tamsulosin.. Continue others. Departure - Departure Disposition: Home, Self Care Clinical Impression: Fall, accidental, Transient hypotension, Head contusion Condition: Stable Record reviewed to determine appropriate education?: Yes Instructions: ED Concussion Follow-Up: Roro Pompa PA-C [Primary Care Provider] - Comments: Your head CT appears normal which means no signs of fracture, bleeding, localized swelling. With falling and hitting your head and feeling foggy and some headache, it would still sound like mild concussive symptoms. This may last for a few days. Stay well-hydrated and Tylenol if needed for pains. Your blood pressure was noted to be low and you state you are pressure has been low lately. By your medication list it looks like you may have a blood pressure medicine called losartan. I would suggest just stopping that. It also look like a recent prescription fill for Flomax/tamsulosin prescribed as 2 tablets daily. This can also cause a drop in blood pressure with standing. I would suggest going down to just once daily. Hydrate well otherwise. Tylenol every 4-6 hours if needed. Forms: PCP List Discharge Date/Time: 02/16/24 16:01
[2024-02-16] MEDS: ACETAMINOPHEN 500 MG TABLET PO STA (15:04)
--- NOTE | 2024-02-16 15:30 | CT Report ---
PROCEDURE: Head WO INDICATIONS: fall, struck head, foggy/LAM TECHNIQUE: Noncontrast 4.5 mm thick angled axial sections acquired from the foramen magnum to the vertex. For r adiation dose reduction, the following was used: automated exposure control, adjustment of mA and/or kV according to patient size. COMPARISON: 03/01/2023. FINDINGS: Image quality: Diagnostic. CSF spaces: Basal cisterns are patent. No extra-axial fluid collections. Ventricles are normal in size and shape. Brain: No midline shift. No intracranial masses or hemorrhage. No mass effect. Fortune-white matter i nterface is normal. There cerebral volume loss for age with resultant ventricular and sulcal prominen ce. There are periventricular and deep white matter chronic small vessel ischemic changes. Atheroscle rotic calcifications are noted in the intracranial segments of the bilateral internal carotid arterie s. Skull and face: Calvarium and visualized facial bones are intact, without suspicious lesions. Sinuses: Visualized sinuses and mastoids are clear. IMPRESSION: No acute intracranial pathology. No acute calvarial fracture. Age-related senescent changes and sequela chronic small vessel ischemic disease. Reviewed by: Shailesh De La Cruz MD on 02/16/2024 2:29 PM AMINATA Approved by: Shailesh De La Cruz MD on 02/16/2024 2:29 PM [email or web address] Station ID: [id number]
[2024-02-16 16:03] VITALS: BP 124/69; O2SAT 94
== END 2024-02-16 16:01 | disposition home or self-care (01) ==
LOC: ED 14:14
DX: S00.03XA Contusion of scalp, initial encounter (principal); V58.4XXA Person boarding or alighting a pick-up truck or van injured in noncollision transport accident, initial encounter; Y92.89 Other specified places as the place of occurrence of the external cause; I95.89 Other hypotension; I10 Essential (primary) hypertension; E78.00 Pure hypercholesterolemia, unspecified; E11.42 Type 2 diabetes mellitus with diabetic polyneuropathy; J45.909 Unspecified asthma, uncomplicated; Z79.82 Long term (current) use of aspirin; Z79.84 Long term (current) use of oral hypoglycemic drugs; Z79.899 Other long term (current) drug therapy
CPT/HCPCS: 70450; 99283; 99284; A9270

== ENCOUNTER 2024-02-18 08:00 | Outpatient (CLI) | payer MEDICARE, OTHER ==
[2024-02-18 21:08] LABS: BASOPHILS % (AUTO) 0.5 %; EOSINOPHILS # (AUTO) 0.1 10^3/uL (0.0-0.7); EOSINOPHILS % (AUTO) 0.8 %; HCT - HEMATOCRIT 44.4 % (42.0-52.0); LYMPHOCYTES # (AUTO) 1.8 10^3/uL (1.5-3.5); LYMPHOCYTES % (AUTO) 20.8 %; MEAN CORPUSCULAR HEMOGLOBIN 31.3 pg (27.0-31.0); MEAN CORPUSCULAR HGB CONC 33.8 g/dL (32.0-36.0); MEAN CORPUSCULAR VOLUME 92.7 fL (80.0-94.0); MEAN PLATELET VOLUME 10.9 fL (7.4-11.4); MONOCYTES # (AUTO) 0.8 10^3/uL (0.0-1.0); NEUTROPHILS # (AUTO) 5.9 10^3/uL (1.5-6.6); NEUTROPHILS % (AUTO) 68.6 %; PLT - PLATELET COUNT 168 10^3/uL (130-450); RED BLOOD COUNT 4.79 10^6/uL (4.70-6.10); RED CELL DISTRIBUTION WIDTH 13.9 % (12.0-15.0); WHITE BLOOD COUNT 8.6 x10^3/uL (4.8-10.8)
[2024-02-18 21:24] LABS: CHOLESTEROL 105 mg/dL; HDL CHOLESTEROL 35 mg/dL; LDL CHOLESTEROL,CALCULATED 34 mg/dL; TRIGLYCERIDES 178 mg/dL; VLDL CHOLESTEROL 36 mg/dL
[2024-02-18 21:36] LABS: THYROID STIMULATING HORMONE 2.68 uIU/mL (0.34-5.60)
[2024-02-19 01:58] LABS: ALBUMIN 4.3 g/dL (3.2-5.5); ALBUMIN/GLOBULIN RATIO 1.5 (1.0-2.2); BILIRUBIN,TOTAL 0.6 mg/dL (0.2-1.0); CALCIUM 10.1 mg/dL (8.5-10.3); CREATININE 1.4 mg/dL (0.6-1.3); POTASSIUM 3.9 mmol/L (3.5-4.5); TOTAL PROTEIN 7.1 g/dL (6.4-8.9)
[2024-02-19 08:59] LABS: ESTIMATED AVERAGE GLUCOSE 120 mg/dL (70-100); HEMOGLOBIN A1c% 5.8 % (4.27-6.07)
== END 2024-02-18 23:59 | disposition home or self-care (01) ==
LOC: LAB.N 08:00
PROVIDERS: ATTEND Family Medicine
DX: E11.9 Type 2 diabetes mellitus without complications (principal); I10 Essential (primary) hypertension; R53.83 Other fatigue; E78.00 Pure hypercholesterolemia, unspecified; Z12.5 Encounter for screening for malignant neoplasm of prostate
CPT/HCPCS: 36415; 80053; 80061; 83036; 84443; 85025; G0103; 83721; 84153